=== PATIENT | female | born 1970 | race Caucasian/White ===

== ENCOUNTER 2020-01-05 17:07 | Inpatient (IN) ==
--- NOTE | 2020-01-05 17:21 | Emergency Department Note ---
Impression & Plan Intra-abdominal haematoma, Thrombocytopenia, Anemia ED Provider Note NAME: PIEDAD COX AGE: 49 SEX: F : 1970 ARRIVES VIA: Walk-In INFORMANT: Patient, ED PROVIDER(S): Prashanth Blanchard MD Chief Complaint: Abdominal pressure, bruising HPI: Patient does present with the above complaints. The patient states that she has had some associated abdominal pressure over the last 3 to 4 days. It is been somewhat intermittent. The patient was concerned that she noticed some bruising over the lower abdomen today. Patient states she denies any trauma. The patient does not use any blood thinning medications. The patient does not think that she has had anything weighted either pressing against her sitting on the lower abdomen. Patient denies any nausea vomiting. The patient denies any sick contacts. The patient is primarily from [place] but has been within the [facility] for the last month. The patient denies any sick contacts, fevers, chills, shortness of breath, cough and no other travel within the last month and has not had any coronavirus testing or associated symptoms. Patient does not take anything for symptoms at home. Patient does have a prior history of breast cancer status post mastectomy and reconstruction. The patient's serum section was 13 years ago. Patient denies any gingival bleeding but did have a nosebleed earlier today which stopped on its own. ROS: See HPI for pertinent positives and negatives. A total of 10 systems were reviewed and otherwise negative. Past medical history: See below Surgical history: See below Social history: See below Physical Exam: GENERAL: Well appearing, well nourished, NAD, non-toxic. Wearing a mask. EYE EXAM: Normal conjunctiva. PERRL, no anisocoria and EOM's grossly intact w/o pain. NECK: Supple, no nuchal rigidity, no adenopathy, non-tender. No signs of meningismus. LUNGS: Clear to auscultation. Normal chest wall mechanics. HEART: NSR, no MRG. ABDOMEN: Abdomen soft, non-tender, normo-active bowel sounds, no masses, no rebound or guarding. BACK: No CVA TTP. Well-healed surgical scars over the bilateral lateral thoracic back. SKIN: No rashes. Ecchymosis located over the lower abdomen. Small area of ec chymosis around the lower portion of the umbilicus. UPPER EXTREMITIES: Upper extremities are grossly normal. LOWER EXTREMITIES: Grossly normal, no edema. NEURO EXAM: A&O x3, cranial nerves II-XII grossly intact, normal speech, moves all 4 extremities on command w/o issue. Differential diagnoses: Coagulopathy, thrombocytopenia, platelet dysfunction, mass, malignancy, among others were entertained. Course: Patient was seen and evaluated at the bedside. The patient had a full history and physical exam completed. I did update the patient on the findings. I did speak with Dr. Martinez [facility] hematology/oncology. He recommended platelet function assay as well as fibrinogen testing. I placed these orders in addition to a type and screen. I did speak with the on-call hospitalist [facility] Dr. Perez. He will further evaluate treat the patient. EKG: None Imaging Studies: Radiology results as stated below per my review in the radiologist's interpretation: CT abd pelvis IV con only CT DOSE: 348.79 mGy.cm HISTORY: Pain spontaneous ecchymosis lower abdomen TECHNIQUE: Multiaxial CT images of the abdomen and pelvis were performed following the use of intravenous contrast. A dose lowering technique was utilized adhering to the principles of ALARA. COMPARISON STUDY: None. FINDINGS: Lung bases are clear. There has been bilateral augmentation mammoplasty. Liver spleen and pancreas enhance uniformly. Kidneys are negative for hydronephrosis. Nonobstructive bowel pattern. Mild infiltrative change within the right lower quadrant adjacent to cecum and appendix. The appendix itself appears to be unremarkable. There is inflammatory changes immediately adjacent to a soft tissue density within the low right soft tissue pelvic region. This measures 9 x 6 x 5 cm. It is suggestive given history of a potential hematoma. No well-defined evidence for an active focus of bleeding at this time. The rectus musculature appears unremarkable. IMPRESSION: 1. Hematoma of the lower right pelvic region immediately lateral to the lower aspect of the bladder on the right. 2. Dimensions are 9 x 6 x 5 cm. 3. Mild reactive infiltrative change of the fat adjacent to the cecum and appendix. No evidence for acute appendicitis. 4. Remainder the study is unremarkable. ACT 112: Negative or not required by law. The above report was generated using voice recognition software. It may contain grammatical, syntax or spelling errors. Electronically signed by: Michel Sparrow M.D. 01/05/2020 6:54 PM Dictated: 01/05/201848 Transcribed: 01/05/201848 Cardiac monitoring: An order was placed for continuous cardiac monitoring. The monitor shows a rate of 97 with sinus rhythm. MDM: Patient was seen and evaluated the bedside. The patient was presenting with concern for lower abdominal bruising and associated pressure. The patient denies any trauma. Patient does not use any blood thinning medications. Patient did have blood work completed along with a CT of the abdomen pelvis. Coagulation studies were obtained. Patient does have mild anemia with a hemoglobin of 10. Mild thrombocytopenia greater than 100,000. Patient CT of the abdomen pelvis does show a 9 x 6 x 5 cm hematoma. I did ask the patient to see if she had some sort of patient portal. She was able to locate a CBC from 2016. This did show that the patient had normal platelet count at greater than 260. Patient also had a hemoglobin of 13 at that time. I did speak with the on-call weapons officer Dr. Chinchilla who recommended fibrinogen as well as a platelet function test. I did speak the on- call hospitalist agreed to further evaluate treat the patient. Patient was admitted to the medicine service. After further discussion with the patient stating that the only thing that was present was this bruising she did relate that she has had a lot of sexual intercourse. It is possible that this may be a precipitating cause. I did convey this to the hospitalist. Past Med/Surg History Medical History Breast cancer Surgical History H/O breast reconstruction H/O section H/O mastectomy Social History Feels Safe at Home: Yes Smoking Status: Never smoker Allergies Allergies Allergy/AdvReac Type Severity Reaction Status Date / Time Sulfa (Sulfonamide Allergy Severe HIVES Unverified 01/05/20 18:10 Antibiotics) Home Meds Home Medications Medication Instructions Recorded Confirmed Dearbrightly//Regular 1 applic TOPICAL HS 01/05/20 01/05/20 albuterol sulfate 1 puff INHALATION UD PRN 01/05/20 01/05/20 anastrozole 1 mg PO DAILY 01/05/20 01/05/20 citalopram 20 mg PO DAILY 01/05/20 01/05/20 estradiol [Estring] 1 vag ring VAGINAL UD 01/05/20 01/05/20 fexofenadine 30 mg PO DAILY 01/05/20 01/05/20 fluticasone propionate [Flovent 1 puff INHALATION DAILY 01/05/20 01/05/20 HFA] nitrofurantoin monohyd/m-cryst 100 mg PO DAILY 01/05/20 01/05/20 Results & Data (ED) Vital Signs Vital Signs - 24 hr 01/05/20 17:11 01/05/20 19:02 Temperature 36.8 C Temperature Source Oral Pulse Rate 102 H Pulse Rate [Right Finger] 68 Pulse Rhythm Regular Pulse Rhythm [Right Finger] Regular Pulse Strength Normal Pulse Strength [Right Finger] Normal Respiratory Rate 20 16 Respiratory Effort / Characteristics Non-Labored Spontaneous Non-Labored Respiratory Depth Normal Normal Respiratory Pattern Regular Regular Blood Pressure 188/114 H Blood Pressure [Right Arm] 144/95 H Blood Pressure Mean 138 Blood Pressure Mean [Right Arm] 111 Blood Pressure Position Sitting Blood Pressure Position [Right Arm] Lying Pulse Oximetry 99 100 Oxygen Delivery Method Room Air Room Air Sepsis Recent Fever Within 48 Hours No Sepsis Action Taken by Nursing No Action Required Home Medications Current Medication List: was personally reviewed by me Laboratory Data Attestation: I reviewed the patient's lab results. Result diagrams: 01/05/20 17:37 01/05/20 18:00 Lab Results 01/05/20 01/05/20 01/05/20 Range/Units 17:37 17:37 17:37 WBC 6.06 (4.8-10.8) K/uL RBC 3.49 L (4.2-5.4) M/uL Hgb 10.9 L (12.0-16.0) g/dL Hct 32.5 L (37-47) % MCV 93.1 (80-100) fL MCH 31.2 (25-34) pg MCHC 33.5 (32-36) g/dL RDW Std Deviation 42.3 (36.4-46.3) fL RDW Coeff of John 12.5 (11.5-14.5) % Plt Count 106 L (130-400) K/uL MPV 10.8 H (7.4-10.4) fL Immature Gran % (Auto) 0.3 % Neut % (Auto) 56.1 % Lymph % (Auto) 31.8 % Chambers % (Auto) 7.9 % Eos % (Auto) 3.6 % Baso % (Auto) 0.3 % Immature Gran # (Auto) 0.02 (0.00-0.02) K/uL Neut # (Auto) 3.39 (1.4-6.5) K/uL Lymph # (Auto) 1.93 (1.2-3.4) K/uL Chambers # (Auto) 0.48 (0.11-0.59) K/uL Eos # (Auto) 0.22 (0-0.5) K/uL Baso # (Auto) 0.02 (0-0.2) K/uL PT Cancelled INR Cancelled APTT Cancelled PTT Ratio Cancelled Sodium Cancelled Potassium Cancelled Chloride Cancelled Carbon Dioxide Cancelled Anion Gap Cancelled BUN Cancelled Creatinine Cancelled Est Cr Clr Drug Dosing Cancelled Est GFR ( Amer) Cancelled Est GFR (Non-Af Amer) Cancelled BUN/Creatinine Ratio Cancelled Glucose Cancelled Calcium Cancelled Total Bilirubin Cancelled AST Cancelled ALT Cancelled Alkaline Phosphatase Cancelled Total Protein Cancelled Albumin Cancelled Globulin Cancelled Albumin/Globulin Ratio Cancelled Lipase Cancelled 01/05/20 01/05/20 Range/Units 18:00 18:00 WBC (4.8-10.8) K/uL RBC (4.2-5.4) M/uL Hgb (12.0-16.0) g/dL Hct (37-47) % MCV (80-100) fL MCH (25-34) pg MCHC (32-36) g/dL RDW Std Deviation (36.4-46.3) fL RDW Coeff of John (11.5-14.5) % Plt Count (130-400) K/uL MPV (7.4-10.4) fL Immature Gran % (Auto) % Neut % (Auto) % Lymph % (Auto) % Chambers % (Auto) % Eos % (Auto) % Baso % (Auto) % Immature Gran # (Auto) (0.00-0.02) K/uL Neut # (Auto) (1.4-6.5) K/uL Lymph # (Auto) (1.2-3.4) K/uL Chambers # (Auto) (0.11-0.59) K/uL Eos # (Auto) (0-0.5) K/uL Baso # (Auto) (0-0.2) K/uL PT 9.6 INR 0.9 APTT 25.2 PTT Ratio 0.9 Sodium 135 L Potassium 3.5 Chloride 108 H Carbon Dioxide 28 Anion Gap -2.0 L BUN 22 H Creatinine 0.65 Est Cr Clr Drug Dosing 99.2 Est GFR ( Amer) 120.8 Est GFR (Non-Af Amer) 104.3 BUN/Creatinine Ratio 33.1 H Glucose 105 H Calcium 9.0 Total Bilirubin 0.6 AST 22 ALT 26 Alkaline Phosphatase 111 Total Protein 7.0 Albumin 3.4 Globulin 3.6 Albumin/Globulin Ratio 0.9 Lipase 244 Administered Medications Ioversol (Optiray 320 100ml) 94 ml IV ONCE PRN PRN Reason: Interaction Checking Stop: 01/09/20 18:40 Last Admin: 01/05/20 18:42 Dose: 94 ml Documented by: [id number] Discontinued Medications Sodium Chloride (Nss 1000ml) 1,000 mls @ 999 mls/hr IV .Q1H1M ONE Stop: 01/05/20 18:28 Last Infusion: 01/05/20 18:57 Dose: 0 mls/hr Documented by: [id number] Admin: 01/05/20 17:52 Dose: 999 mls/hr Documented by: [id number] Blood Pressure Blood Pressure Disposition: elevated BP felt to be situational Discharge Plan Visit Data Chief Complaint: Abdominal Pain Stated Complaint: ABD PAIN ED Provider: Prashanth Blanchard Discharge Problem: Intra-abdominal haematoma, Thrombocytopenia, Anemia Forms Stand Alone Forms: My [facility] ActualMeds Prescriptions Prescriptions: No Action anastrozole 1 mg tablet 1 mg PO DAILY RF: 0 citalopram 20 mg tablet 20 mg PO DAILY RF: 0 albuterol sulfate 90 mcg/actuation HFA aerosol inhaler 1 puff INHALATION UD PRN (Reason: Exercise Induced Bronchospasm) RF: 0 Estring 2 mg (7.5 mcg /24 hour) ring 1 vag ring VAGINAL UD RF: 0 Flovent HFA 110 mcg/actuation HFA aerosol inhaler 1 puff INHALATION DAILY RF: 0 nitrofurantoin monohyd/m-cryst 100 mg capsule 100 mg PO DAILY RF: 0 fexofenadine 30 mg Tablet,Disintegrating 30 mg PO DAILY RF: 0 Dearbrightly//Regular 1 applic topical HS RF: 0 Discharge Problem: Anemia Qualifiers: Anemia type: unspecified type Qualified Code(s): D64.9 - Anemia, unspecified
[2020-01-05] MEDS ORDERED: SODIUM CHLORIDE 0.9% 1000ML 1,000 ML IV ONE (17:28)
[2020-01-05 17:45] LABS: Basophils # (auto) 0.02 K/uL (0-0.2); Basophils % (auto) 0.3 %; Eosinophils # (auto) 0.22 K/uL (0-0.5); Eosinophils % (auto) 3.6 %; Hematocrit (blood only) 32.5 % (37-47); Hemoglobin 10.9 g/dL (12.0-16.0); Immature Granulocytes # (auto) 0.02 K/uL (0.00-0.02); Immature Granulocytes % (auto) 0.3 %; Lymphocytes # (auto) 1.93 K/uL (1.2-3.4); Lymphocytes % (auto) 31.8 %; Mean Corpuscular Hemoglobin 31.2 pg (25-34); Mean Corpuscular Hgb Conc 33.5 g/dL (32-36); Mean Corpuscular Volume 93.1 fL (80-100); Mean Platelet Volume 10.8 fL (7.4-10.4); Monocytes # (auto) 0.48 K/uL (0.11-0.59); Monocytes % (auto) 7.9 %; Neutrophils # (auto) 3.39 K/uL (1.4-6.5); Neutrophils % (auto) 56.1 %; Platelet Count 106 K/uL (130-400); RDW Coefficient of Variation 12.5 % (11.5-14.5); RDW Standard Deviation 42.3 fL (36.4-46.3); Red Blood Count 3.49 M/uL (4.2-5.4); White Blood Count 6.06 K/uL (4.8-10.8)
[2020-01-05 18:30] LABS: INR 0.9 (0.9-1.1); Partial Thromboplastin Ratio 0.9; Partial Thromboplastin Time 25.2 Seconds (21.0-31.0); Prothrombin Time 9.6 Seconds (9.0-12.0)
[2020-01-05 18:32] LABS: Albumin Level 3.4 gm/dl (3.4-5.0); BUN Creatinine Ratio 33.1 (10-20); Creatinine Clr Calc Pharmacy 99.2 ml/min; Est GFR (African American) 120.8; Est GFR (Non-African American) 104.3; Potassium 3.5 mmol/L (3.5-5.1)
[2020-01-05 18:35] LABS: Albumin Globulin Ratio 0.9 (0.9-2); Bilirubin,Total 0.6 mg/dl (0.2-1); Globulin 3.6 gm/dl (2.5-4.0)
[2020-01-05] MEDS ORDERED: IOVERSOL 100ml IV PRN (18:41)
--- NOTE | 2020-01-05 18:55 | CT Scan Report ---
CT abd pelvis IV con only CT DOSE: 348.79 mGy.cm HISTORY: Pain spontaneous ecchymosis lower abdomen TECHNIQUE: Multiaxial CT images of the abdomen and pelvis were performed following the use of intrave nous contrast. A dose lowering technique was utilized adhering to the principles of ALARA. COMPARISON STUDY: None. FINDINGS: Lung bases are clear. There has been bilateral augmentation mammoplasty. Liver spleen and pancreas enhance uniformly. Kidneys are negative for hydronephrosis. Nonobstructive bowel pattern. Mild infiltrative change within the right lower quadrant adjacent to cecum and appendix. The appendix itself appears to be unremarkable. There is inflammatory changes immediately adjacent to a soft tissue density within the low right soft tissue pelvic region. This measures 9 x 6 x 5 cm. It is suggestive given history of a potential negar she. No well-defined evidence for an active focus of bleeding at this time. The rectus musculature appears unremarkable. IMPRESSION: 1. Hematoma of the lower right pelvic region immediately lateral to the lower aspect of the bladder o n the right. 2. Dimensions are 9 x 6 x 5 cm. 3. Mild reactive infiltrative change of the fat adjacent to the cecum and appendix. No evidence for a cute appendicitis. 4. Remainder the study is unremarkable. ACT 112: Negative or not required by law. The above report was generated using voice recognition software. It may contain grammatical, syntax or spelling errors. Electronically signed by: Michel Sparrow M.D. 01/05/2020 6:54 PM
[2020-01-05 21:01] LABS: Fibrinogen 389 mg/dl (184-400)
[2020-01-05] MEDS ORDERED: ALBUTEROL HFA 8 GM INHALER INH PRN (21:12)
[2020-01-05] MEDS ORDERED: ONDANSETRON INJ 2 MG/ML 2 ML VIAL IV PRN (21:12)
[2020-01-05] MEDS ORDERED: [UNRECOGNIZED DRUG - OTHER] TOP SCH (21:12)
[2020-01-05] MEDS ORDERED: NITROGLYCERIN SL 0.4 MG/TAB TAB SL PRN (21:12)
[2020-01-05] MEDS: SODIUM CHLORIDE 0.9% 1000ML 1,000 ML IV SCH (21:57)
[2020-01-05] MEDS: ZOLPIDEM TARTRATE 5 MG TAB PO PRN (22:42)
--- NOTE | 2020-01-05 22:52 | History and Physical Report ---
DATE OF ADMISSION: 01/05/2020 CHIEF COMPLAINT: Abdominal pain and bruises. HISTORY OF PRESENT ILLNESS: This is a 49-year-old female with past medical history significant for breast cancer diagnosed in 2012, status post bilateral breast mastectomy and chemo, currently on anastrozole. No other significant past medical history. Presents with lower abdominal pain since Wednesday morning. The patient is from [facility], but she came to [place] about a month ago. Lives currently with her parents. Abdominal pain about 3/10 to 4/10 in severity, not associated with any nausea or vomiting. No diarrhea. Somewhat constipated, but denies any blood in the stools or black stools. Normal bladder movements, no hematuria. Appetite is okay. Ambulating fine. Denies any chest pain, no shortness of breath, no cough, no fever, no chills, no headache, no dizziness, no blurred visions, no earache, no runny nose, no sore throat, no dysphagia, no sick contacts. The patient denies any risk for COVID infections.She noticed bruises in her lower abdomen today. She states she is taking ibuprofen 2 times a day for last 2 weeks because she jogs and she is having aches and pains in lower extremity. Currently resting comfortable and hemodynamically stable. ALLERGIES: SULFA ANTIBIOTICS. PAST MEDICAL HISTORY: As mentioned above. PAST SURGICAL HISTORY: Bilateral mastectomy, , tonsillectomy. MEDICATIONS: The patient is on albuterol 1 puff inhalation p.r.n., anastrozole 1 mg p.o. daily, citalopram 20 mg p.o. daily, estradiol vaginal ring as directed, fexofenadine 30 mg p.o. daily, Flonase 1 puff inhalation daily, nitrofurantoin 100 mg p.o. daily last dose today. FAMILY HISTORY: Mother had breast cancer. SOCIAL HISTORY: Remote history of smoking. Alcohol, generally does not drink regularly, but last 2 weeks she has been drinking daily. She is from [place], currently since 1 month she is living with her parents. REVIEW OF SYSTEMS: As per HPI. Rest of the review of systems negative. PHYSICAL EXAMINATION: GENERAL: The patient is of moderate build, not in acute distress. VITAL SIGNS: Temperature 36.8, pulse 68, respiratory rate 16, blood pressure 144/95, oxygen 99% on room air. HEENT: Pupils equal, round, reactive to light. Extraocular muscles intact. NECK: No neck masses. Supple. CARDIOVASCULAR: S1, S2 heard, regular rate and rhythm, no murmur, no gallop. RESPIRATORY SYSTEM: Normal AP diameter. No accessory muscle use. No wheezing, no crackles. ABDOMEN: Soft, bowel sounds present, nontender. No distention. Bruises seen in the lower abdomen. CENTRAL NERVOUS SYSTEM: Cranial nerves II-XII grossly intact. Nonfocal. EXTREMITIES: No edema, no erythema. LABORATORY DATA: WBC 6, hemoglobin 10.9, hematocrit 32.5, platelets 106. PT 9.6, INR 0.9, APTT 25.2. Sodium 135, potassium 3.5, chloride 108, bicarbonate 28, BUN 22, creatinine 0.6, serum glucose 105, calcium 9, total bilirubin 0.6, AST 22, ALT 26, alkaline phosphatase 111, lipase 244. IMAGING DATA: CT of the abdomen and pelvis, hematoma of the lower right pelvic region immediately lateral to the lower aspect of the bladder on the right, dimensions are 9 x 6 x 5 cm, mildly reactive infiltrative change in the fat distant to cecum and appendix. No evidence of acute appendicitis. ASSESSMENT AND PLAN: This 49-year-old female presents with abdominal pain and found to have large abdominal hematoma. 1. Abdominal pain and bruises in lower abdomen since last Wednesday. CAT scan is showing 9 x 6 x 5 cm right lower pelvic region hematoma. No trauma. Taking ibuprofen twice daily for last 2 weeks. Denies taking any blood thinners. We will observe the patient in the hospital. Consult surgery in the a.m. for further recommendations. The ER physician talked to oncologist driver lifter of sanitation truck and recommended to do platelet function test and fibrinogen test which are pending. 2. History of breast cancer diagnosed in 2012, status post bilateral mastectomy, currently on anastrozole. States she is doing fine regarding it. 3. Anemia, hemoglobin 10.9, we do not have a baseline hemoglobin. We will check the stool for Hemoccult, iron studies, vitamin B12, and folate levels. Follow the labs. Stool for Hemoccult. 4. Thrombocytopenia, mild, platelets of 106. We will follow the fibrinogen and platelet function test. We will also do a Lyme screen and also peripheral smear to look for any anaplasmosis in the patient. 5 Deep venous thrombosis prophylaxis, sequential compression devices. DISPOSITION: Closely observe in the med/surg tele. Level 1 full code. MTDD
[2020-01-06 05:44] LABS: Hematocrit (blood only) 30.4 % (37-47); Hemoglobin 10.3 g/dL (12.0-16.0); Mean Corpuscular Hemoglobin 31.3 pg (25-34); Mean Corpuscular Hgb Conc 33.9 g/dL (32-36); Mean Corpuscular Volume 92.4 fL (80-100); Mean Platelet Volume 8.9 fL (7.4-10.4); Platelet Count 240 K/uL (130-400); RDW Coefficient of Variation 12.4 % (11.5-14.5); RDW Standard Deviation 42.1 fL (36.4-46.3); Red Blood Count 3.29 M/uL (4.2-5.4); White Blood Count 6.65 K/uL (4.8-10.8)
[2020-01-06 05:58] LABS: Basophils # (auto) 0.02 K/uL (0-0.2); Basophils % (auto) 0.3 %; Eosinophils # (auto) 0.32 K/uL (0-0.5); Eosinophils % (auto) 4.8 %; Immature Granulocytes # (auto) 0.03 K/uL (0.00-0.02); Immature Granulocytes % (auto) 0.5 %; Lymphocytes # (auto) 1.55 K/uL (1.2-3.4); Lymphocytes % (auto) 23.3 %; Monocytes # (auto) 0.73 K/uL (0.11-0.59); Neutrophils % (auto) 60.1 %
[2020-01-06 06:48] LABS: Lyme Ab IgG w/WB Rflx Negative (Negative); Lyme Ab IgM w/WB Rflx Negative (Negative)
[2020-01-06 07:25] LABS: Creatinine Clr Calc Pharmacy 108.8 ml/min; Est GFR (African American) 124.7; Est GFR (Non-African American) 107.6; Potassium 3.3 mmol/L (3.5-5.1)
[2020-01-06 07:26] LABS: BUN Creatinine Ratio 18.3 (10-20); Calcium 8.4 mg/dl (8.5-10.1); Magnesium 1.9 mg/dl (1.8-2.4)
[2020-01-06 07:27] LABS: Ferritin 170.1 ng/ml (8-388)
--- NOTE | 2020-01-06 07:29 | Surgery Consultation ---
Date of Consultation January 06, 2020 Assessment & Plan (1) Pelvic hematoma: Patient admitted with what appears to be a right pelvic hematoma This could be related to her ovary, it appears there is no significant relationship to her bowel or appendix Could be related to a pelvic tumor, she will require repeat CAT scan but this would not have to be performed for weeks Unless we are concerned with ongoing bleeding I do feel it is most likely clot at this point and she probably bled 3 to 4 days ago It does not appear that she has having active bleeding, we are monitoring her hematocrit I do suspect a mild fall in the hematocrit with her rehydration No indication for surgical intervention at this point She should probably have a SECURITY ALARM TECHNICIAN evaluation and possibly hematology for some underlying bleeding disorder I will order clear liquids History of Present Illness Attending Physician: Veronica Wallace MD History of Present Illness Patient is a 49-year-old female, we are consulted for a which is in the right pelvis This could be intra-abdominal or retroperitoneal in that area. She came to the emergency room Because of 3 to 4 days of abdominal pressure and then noticed bruising in her abdominal wall Her CAT scan showed a right pelvic hematoma. There is some mild inflammatory changes in the area of cecum and appendix but no evidence of appendicitis. Her hematocrit is stable, platelet count is normal She has a history of bilateral mastectomy for history of breast cancer chemotherapy in the past -2012 She is on anastrozole She no longer experiences menses but does have her ovaries Allergies Allergy/AdvReac Type Severity Reaction Status Date / Time Sulfa (Sulfonamide Allergy Severe HIVES Unverified 01/05/20 18:10 Antibiotics) Home Medications Home Medications Medication Instructions Recorded Confirmed Type Dearbrightly//Regular 1 applic TOPICAL HS 01/05/20 01/05/20 History albuterol sulfate 1 puff INHALATION UD PRN 01/05/20 01/05/20 History anastrozole 1 mg PO DAILY 01/05/20 01/05/20 History citalopram 20 mg PO DAILY 01/05/20 01/05/20 History estradiol [Estring] 1 vag ring VAGINAL UD 01/05/20 01/05/20 History fexofenadine 30 mg PO DAILY 01/05/20 01/05/20 History fluticasone propionate [Flovent 1 puff INHALATION DAILY 01/05/20 01/05/20 History HFA] nitrofurantoin monohyd/m-cryst 100 mg PO DAILY 01/05/20 01/05/20 History Patient History Medical History Breast cancer Surgical History H/O breast reconstruction H/O section H/O mastectomy Social History Preferred Language: Frisian Communication Ability: Effective Braille Coder Required: No Beliefs That Will Affect Care: None Current Living Situation: Family Current Living Situation Comment: With son Other Information That Helps Us Care for You: No Feels Safe at Home: Yes Smoking Status: Former smoker Tobacco Type: cigarettes ; Do You Dip or Chew Tobacco: No ; Second Hand Exposure: No ; Tobacco Cessation Education Requested by Patient: No Hx Alcohol Use: Yes Alcohol type: beer, wine and hard liquor Hx Substance Use: No Review of Systems Review of Systems: All systems reviewed & are unremarkable except as noted in HPI & below Physical Exam Physical Exam: Patient's abdomen is flat and soft with some bruising in the lower abdomen He does have some mild tenderness to deep palpation Constitutional: well developed and well nourished; no acute distress Eyes: + anicteric sclerae Respiratory: normal respiratory effort; no respiratory distress Cardiovascular: Rate/Rhythm: regular rate Gastrointestinal (Abdomen): Inspection/Auscultation: abdomen not distended Skin: no rashes, warm and dry Neurologic: awake Psychiatric: Orientation: alert Results & Data Vital Signs (Past 12 Hours) Vital Signs Temp Pulse Pulse Resp BP Pulse Ox 01/06/20 07:28 36.7 C 88 16 130/83 97 01/06/20 07:26 83 01/06/20 04:56 36.9 C 78 16 144/83 H 97 01/05/20 23:47 36.7 C 82 20 151/88 H 96 01/05/20 22:20 79 01/05/20 21:33 36.9 C 81 77 16 163/101 H 100 I have reviewed her CAT scan PG Care Time/CCT Total # of Minutes Spent Total Time Spent with Patient: Total time spent is greater than 50% in coordination of care (as documented) at patient's floor/unit and/or counseling patient: Coding Level of Care Code 93701 Inpt Consult Level 4 Diagnoses Pelvic hematoma
[2020-01-06] MEDS: FEXOFENADINE 60 MG TAB PO SCH (08:11)
[2020-01-06] MEDS: ANASTROZOLE 1 MG TAB PO SCH (08:11)
[2020-01-06] MEDS: CITALOPRAM 20 MG TAB PO SCH (08:11)
[2020-01-06] MEDS: SODIUM CHLORIDE 0.9% 1000ML 1,000 ML IV SCH (08:11)
[2020-01-06] MEDS: FLUTICASONE FUROATE 100MCG 14 PUFFS/INHALER INH SCH (08:12)
[2020-01-06] MEDS: ACETAMINOPHEN 325 MG TAB PO PRN (08:16)
[2020-01-06 08:57] LABS: Folate (Folic Acid) > 24.00 ng/ml (>5.38); Vitamin B12 1237 pg/ml (211-911)
[2020-01-06] MEDS: MoRPHine SULFATE 2 MG/ML CARP IV PRN ×2 (12:24→19:21)
--- NOTE | 2020-01-06 13:50 | Hospitalist Progress Note ---
Date of Service January 06, 2020 Assessment & Plan (1) Pelvic hematoma: admitted with sudden onset of rt sided pelvic /lower abdominal pain /bruise spontaneous hematoma no hx of trauma not on any anticoagulation CT abdomen /pelvis : large 9 x 6 x 5 cm.Hematoma of the lower right pelvic region immediately lateral to the lower aspect of the bladder on the right. coag panel stable no drop in H&H Pelvic USG : large complex collection seen in rt overy hx of breast CA , need to rule out ovarian malignancy ordered for CA 125/CEA -tumor markers ACID CHANGER consult requested pt denies of any recent wt loss , anorexia (2) Anemia: anemia of chronic disease hx of breast CA s/p chemo Hb remains at baseline 10 no acute drop noted pt denies of any symptom of SOB /CONTRERAS /dizzy spell or lightheadedness BREAST CA: dx in 2011 s/p bilateral mastectomy and chemo tx on Anaostrazole follows with Heme /Onc in [facility] dvt prophylaxis : scd and teds pt is encouraged to ambulate no anticoagulation given presence of pelvic hematoma DISPOSITION ; plan to dc home in next 24-48 hrs Admission and Anticipated Discharge Date Admission Date: January 05, 2020 Subjective complains of rt sided lower abdomen and flak pain no fever or chills no urinary symptoms no complain of nausea or vomiting appetite fair no report of recent wt loss no vaginal bleeding Review of Systems Review of Systems: All systems reviewed & are unremarkable except as noted in HPI & below Constitutional: no fever, no chills, no fatigue, no malaise, no anorexia and no weight loss Genitourinary: no dysuria, no urinary frequency and no hematuria Physical Exam Constitutional: WD/WN, vitals as above Eyes: PERRL, conjunctivae normal, anicteric sclerae ENMT: external ear and nose normal, oropharynx normal Neck: trachea midline, no thyromegaly Respiratory: normal respiratory effort, lungs clear to auscultation Cardiovascular: RRR, no murmur, no edema Gastrointestinal (Abdomen): normal bowel sounds, soft, nontender, no hepatosplenomegaly lower abdominal small eccymosis noted no swelling or surround ecchymosis Skin: eccymosis in lower pelvic area no redness or swelling Results & Data Results & Data ([facility]) Vital Signs (Past 12 Hours) Vital Signs Temp Pulse Pulse Resp BP Pulse Ox 01/06/20 07:28 36.7 C 88 16 130/83 97 01/06/20 07:26 83 01/06/20 04:56 36.9 C 78 16 144/[address] ABDOMEN/PELVIS : IMPRESSION: 1. Hematoma of the lower right pelvic region immediately lateral to the lower aspect of the bladder on the right. 2. Dimensions are 9 x 6 x 5 cm. 3. Mild reactive infiltrative change of the fat adjacent to the cecum and appendix. No evidence for acute appendicitis. 4. Remainder the study is unremarkable. PELVIC ULTRASOUND : IMPRESSION: 1. Unremarkable sonographic assessment of the uterus and left ovary. 2. Nonvisualization of the right ovary. 3. A large complex collection is again seen in the right adnexa. This likely represents a hematoma when correlated with yesterday's pelvic CT scan. (1) Anemia Anemia type: unspecified type Qualified Code(s): D64.9 - Anemia, unspecified
[2020-01-06] MEDS ORDERED: POTASSIUM CHLORIDE 20 MEQ TABCR PO STA (14:05)
--- NOTE | 2020-01-06 15:35 | Ultrasound Report ---
ULTRASOUND OF THE PELVIS CLINICAL HISTORY: Pelvic hematoma. COMPARISON STUDY: Pelvic CT dated 01/05/2020. TECHNIQUE: Real-time, grayscale, and color flow sonography of the pelvis is performed both transabdom inally and endovaginally. Images are reviewed in the transverse and longitudinal planes. The endovagi nal examination was performed for better assessment of the adnexa. FINDINGS: Uterus: The uterus is normal in size and echotexture, measuring 7.4 x 3.8 x 4.3 cm. Endometrium: The endometrium is normal in appearance, and the endometrial stripe is normal in thickne ss measuring up to 0.4 cm. Ovaries: The right ovary was not visualized. The left ovary measures 3.0 x 1.4 x 2.4 cm. Normal Doppl er waveforms are shown within both ovaries. Pelvis: A complex fluid collection is again seen in the right adnexa. This measures approximately 10 x 6 x 6.5 cm. No internal flow is shown on color imaging. There is a small volume of simple free flui d in the cul-de-sac. IMPRESSION: 1. Unremarkable sonographic assessment of the uterus and left ovary. 2. Nonvisualization of the right ovary. 3. A large complex collection is again seen in the right adnexa. This likely represents a hematoma wh en correlated with yesterday's pelvic CT scan. ACT 112: Negative or not required by law. Electronically signed by: Jcarlos Jimenez M.D. 01/06/2020 3:33 PM
--- NOTE | 2020-01-06 19:06 | Progress Note ---
Date of Service January 06, 2020 Assessment & Plan Admission and Anticipated Discharge Date Admission Date: January 06, 2020 Subjective EPIDEMIOLOGIST CONSILT Pt is seen and evaluated consult is dictated and plan discussed with Dr Torres Plan P is stable so we will do expectant management for now Repeat CT as out patient Results & Data ([facility]) Vital Signs (Past 12 Hours) Vital Signs Temp Pulse Pulse Resp BP Pulse Ox 01/06/20 15:42 36.9 C 78 18 145/89 H 100 01/06/20 07:28 36.7 C 88 16 130/83 97 01/06/20 07:26 83
[2020-01-06 19:09] LABS: Appearance Urine Clear (Clear); Bilirubin Urine Negative (Negative); Blood Urine Negative (Negative); Color Urine Yellow; Glucose Urine UA Negative (Negative); Ketones Urine Negative (Negative); Leukocyte Esterase Urine Negative (Negative); Nitrite Urine Negative (Negative); Protein Urine Negative (Negative); Specific Gravity Urine 1.014 (1.000-1.030); Urobilinogen Urine Negative (Negative)
--- NOTE | 2020-01-06 21:20 | Consultation Report ---
DATE OF CONSULTATION: 01/06/2020 CUT OFF SAW OPERATOR consult placed by Dr. Torres. HISTORY OF PRESENT ILLNESS: This is a 49-year-old G1, P1 status post breast cancer in 2012, patient underwent bilateral breast mastectomy and chemotherapy. She is presently on anastrozole. The patient lives in [place] and has been doing well since. She does not get any menses. She visited [place] and began to experience abdominal pain, ranked the pain 3-4. She is having the abdominal pain for the last 3-4 days. She presented to the Emergency Room last night. CT scan done in the Emergency Room showed a right pelvic adnexal mass. There was a 10 cm right lower pelvic mass, suspected to be a hematoma. The patient was therefore admitted. General surgery was consulted. General surgery saw the patient and ruled out any association of the hematoma with the bowel and therefore CUT OFF SAW OPERATOR was consulted. The patient had no shortness of breath, no chills, no fever. The patient is able to move her bowels. The patient denies history of any blood dyscrasias. She has no history of nosebleed or any bleeding from the gums or the ears. As stated above, she does not have any menses. She denies any bleeding anywhere on her body. She denies any trauma to the abdomen or abuse. She denies history of easy bruising. PAST MEDICAL HISTORY: History of breast cancer. PAST SURGICAL HISTORY: Bilateral mastectomy and sections. SOCIAL HISTORY: The patient denies smoking, drug or alcohol use. FAMILY HISTORY: Noncontributory. PHYSICAL EXAMINATION: GENERAL: Well-developed, well-nourished white female in no acute distress. HEART: S1, S2, regular rhythm and rate. LUNGS: Clear to auscultation bilaterally. ABDOMEN: The patient has ecchymoses on her right lower abdomen along her section scar. Nontender to touch. Positive bowel sounds. EXTREMITIES: No cyanosis, clubbing or edema. NEUROLOGIC: The patient is alert, awake and oriented x3. Labs are reviewed. Platelets unremarkable. PT/INR is ordered by the cash manager and all are normal. CT and ultrasound shows a 9 x 6 x 5 cm right adnexal mass, suspected to be a hematoma. The right ovary is not visible. ASSESSMENT AND PLAN: A 49-year-old with abdominal pain, found to have a large abdominal hematoma, the source of hematoma is unknown. The patient denies any trauma or abuse. The patient has history of breast cancer and is on anastrozole. She denies any hematuria or being on any medicines such as aspirin or any blood thinners. I have discussed the case with the hospitalist. At this point, hemoglobin, white count and platelets are all stable. We have had extensive discussion with the patient about management. The patient resides in [place]. She plans on being in [facility] for couple of months. Plan therefore is to monitor this adnexal mass since we now have a baseline size, if the hematoma continues to resolve on its own then there will be nothing to do obviously from this standpoint. If, however, there is a change in patient's condition including possible torsion, change in the size of the hematoma then we will consider surgery. The patient agrees with plan. I have had discussion with Dr. Torres about the patient's management as well.
[2020-01-06] MEDS: ZOLPIDEM TARTRATE 5 MG TAB PO PRN (22:09)
[2020-01-07] MEDS: ACETAMINOPHEN 325 MG TAB PO PRN (06:05)
[2020-01-07 06:33] LABS: Hematocrit (blood only) 32.9 % (37-47); Hemoglobin 10.9 g/dL (12.0-16.0)
[2020-01-07 07:13] LABS: BUN Creatinine Ratio 11.3 (10-20); Calcium 9.2 mg/dl (8.5-10.1)
--- NOTE | 2020-01-07 08:04 | Hospitalist Progress Note ---
Date of Service January 07, 2020 Assessment & Plan (1) Pelvic hematoma: admitted with sudden onset of rt sided pelvic /lower abdominal pain /bruise spontaneous hematoma CT abdomen /pelvis : large 9 x 6 x 5 cm.Hematoma of the lower right pelvic region immediately lateral to the lower aspect of the bladder on the right. no hx of trauma /fall or injury not on any anticoagulation coag panel normal , no prior hx of bleeding disorder -no nose bleed or hematur ia no other bruise or ecchymosis noted any other part of the body pt does not take low dose aspirin or any other blood thinners Hb stable at 10 ( pt has baseline anemia ) pt denies of any recent wt loss , anorexia Pelvic USG : large complex collection seen in rt ovary CA 125 Ag -result pending /CEA -tumor markers -Negative ACCOUNTING MACHINE OPERATOR consult requested appreciate input -no indication of emergent surgery or hematoma evacuation expected the hematoma will resolve spontaneously pt should return to ER with any event of fever ,increased pain on lower abdomen , feeling of dizzy spells or lightheadedness ( sign of blood loss anemia ) repeat LAB : complete blood count in 1 week to assess anemia repeat CT abdomen /pelvis is next 2 weeks to assess decrease in size of hematoma ACCOUNTING MACHINE OPERATOR follow up at [facility] clinic in 2-3 weeks to discuss about CT and lab finding and further treatment plan Pt is a visitor in [place] , lives in [facility] . her Health Care providers including Costumed Character Dr Roberto Carlos [facility] in [place] will Fax all the report and documents of patient current visit to Her [facility] for continued follow up and treatment pt will be given CD copy of CT scan /Ultrasound of pelvis . pt will be discharged home today (2) Anemia: possible anemia of chronic disease hx of breast CA s/p chemo Hb remains at baseline 10 no acute drop noted pt denies of any symptom of SOB /CONTRERAS /dizzy spell or lightheadedness ordered for iron study will add Folic acid /vitamin B 12 and iron supplements BREAST CA: dx in 2012 s/p bilateral mastectomy and chemo tx on Anaostrazole follows with Heme /Onc in [facility] dvt prophylaxis : scd and teds pt is encouraged to ambulate no anticoagulation given presence of pelvic hematoma DISPOSITION ; plan to dc home today Admission and Anticipated Discharge Date Admission Date: January 06, 2020 Anticipated date of discharge: 01/07/20 Subjective lower abdominal pain has improved no fever or chills no urinary symptoms Physical Exam Constitutional: WD/WN, vitals as above Eyes: PERRL, conjunctivae normal, anicteric sclerae ENMT: external ear and nose normal, oropharynx normal Neck: trachea midline, no thyromegaly Respiratory: normal respiratory effort, lungs clear to auscultation Cardiovascular: RRR, no murmur, no edema Gastrointestinal (Abdomen): normal bowel sounds, soft, nontender, no hepatosplenomegaly Musculoskeletal: no cyanosis or clubbing, extremities motor strength 5/5 Skin: small ecchymotic area on lower abdominal area , near to the her C section scar /no erythema , no swelling , area non tender , Neurologic: PERRL, EOMI, accommodation nl, no face palsy, no dysarthria Psychiatric: A+Ox3, euthymic affect Results & Data Results & Data ([facility]) Vital Signs (Past 12 Hours) Vital Signs Temp Pulse Resp BP Pulse Ox 01/07/20 07:36 36.6 C 69 16 133/87 99 01/07/20 04:38 36.3 C L 61 20 153/81 H 100 01/06/20 23:18 37.0 C 90 18 122/81 98 (1) Anemia Anemia type: unspecified type Qualified Code(s): D64.9 - Anemia, unspecified
[2020-01-07 08:50] LABS: Iron 41 mcg/dl (35-150); Total Iron Binding Capacity 353 mcg/dl (250-450)
--- NOTE | 2020-01-07 08:51 | Surgery Progress Note ---
Date of Service January 07, 2020 Assessment & Plan (1) Pelvic hematoma: H&H stable anticipate d/c today with outpatient Green Chain Puller f/u Subjective tolerating diet, feels some pressure, no pain Results & Data Vital Signs (Past 12 Hours) Vital Signs Temp Pulse Resp BP Pulse Ox 01/07/20 07:36 36.6 C 69 16 133/87 99 01/07/20 04:38 36.3 C L 61 20 153/81 H 100 01/06/20 23:18 37.0 C 90 18 122/81 98 PG Care Time/CCT Total # of Minutes Spent Total Time Spent with Patient: Total time spent is greater than 50% in coordination of care (as documented) at patient's floor/unit and/or counseling patient: Coding Level of Care Code None Diagnoses Pelvic hematoma
[2020-01-07] MEDS ORDERED: FOLIC ACID 1 MG TAB PO SCH (09:00)
[2020-01-07] MEDS ORDERED: FLINTSTONES COMPLETE CHEWABLE TAB PO SCH (09:00)
[2020-01-07] MEDS: CITALOPRAM 20 MG TAB PO SCH (09:12)
[2020-01-07] MEDS: FLUTICASONE FUROATE 100MCG 14 PUFFS/INHALER INH SCH (09:13)
[2020-01-07] MEDS: FEXOFENADINE 60 MG TAB PO SCH (09:13)
[2020-01-07] MEDS: ANASTROZOLE 1 MG TAB PO SCH (09:13)
--- NOTE | 2020-01-07 12:34 | Discharge Summary ---
Date of Service January 07, 2020 Admission HPI Per Admitting Provider DICTATED BY: Andrew Perez MD DATE OF ADMISSION: 01/05/2020 CHIEF COMPLAINT: Abdominal pain and bruises. HISTORY OF PRESENT ILLNESS: This is a 49-year-old female with past medical history significant for breast cancer diagnosed in 2012, status post bilateral breast mastectomy and chemo, currently on anastrozole. No other significant past medical history. Presents with lower abdominal pain since Wednesday morning. The patient is from [facility], but she came to [place] about a month ago. Lives currently with her parents. Abdominal pain about 3/10 to 4/10 in severity, not associated with any nausea or vomiting. No diarrhea. Somewhat constipated, but denies any blood in the stools or black stools. Normal bladder movements, no hematuria. Appetite is okay. Ambulating fine. Denies any chest pain, no shortness of breath, no cough, no fever, no chills, no headache, no dizziness, no blurred visions, no earache, no runny nose, no sore throat, no dysphagia, no sick contacts. The patient denies any risk for COVID infections.She noticed bruises in her lower abdomen today. She states she is taking ibuprofen 2 times a day for last 2 weeks because she jogs and she is having aches and pains in lower extremity. Currently resting comfortable and hemodynamically stable Principal Diagnosis PELVIC HEMATOMA Discharge Exam Constitutional WD/WN, vitals as above Eyes PERRL, conjunctivae normal, anicteric sclerae ENMT external ear and nose normal, oropharynx normal Neck trachea midline, no thyromegaly Respiratory normal respiratory effort, lungs clear to auscultation Cardiovascular RRR, no murmur, no edema Gastrointestinal (Abdomen) normal bowel sounds, soft, nontender, no hepatosplenomegaly Musculoskeletal no cyanosis or clubbing, extremities motor strength 5/5 Neurologic PERRL, EOMI, accommodation nl, no face palsy, no dysarthria Psychiatric A+Ox3, euthymic affect Discharge Data Allergies Allergy/AdvReac Type Severity Reaction Status Date / Time Sulfa (Sulfonamide Allergy Severe HIVES Unverified 01/05/20 18:10 Antibiotics) Consultations 01/05/20 19:25 ED Decision to Admit Stat 01/05/20 21:12 Consult Case Management - Discharge Planning Routine 01/06/20 08:00 Consult General Surgery Routine 01/06/20 17:15 Consult Gynecology Routine 01/07/20 08:01 Burn CD for patient Routine Ordered Studies 01/05/20 17:28 CT abd pelvis IV con only Stat 01/06/20 14:06 US pelvic complete Routine US transvaginal Routine Hospital Course (1) Pelvic hematoma: admitted with sudden onset of rt sided pelvic /lower abdominal pain /bruise spontaneous hematoma CT abdomen /pelvis : large 9 x 6 x 5 cm.Hematoma of the lower right pelvic region immediately lateral to the lower aspect of the bladder on the right. no hx of trauma /fall or injury not on any anticoagulation coag panel normal , no prior hx of bleeding disorder -no nose bleed or hematuria no other bruise or ecchymosis noted any other part of the body pt does not take low dose aspirin or any other blood thinners Hb stable at 10 ( pt has baseline anemia ) pt denies of any recent wt loss , anorexia Pelvic USG : large complex collection seen in rt ovary CA 125 Ag -result pending /CEA -tumor markers -Negative IRRIGATING PUMP OPERATOR consult requested appreciate input -no indication of emergent surgery or hematoma evacuation expected the hematoma will resolve spontaneously pt should return to ER with any event of fever ,increased pain on lower abdomen , feeling of dizzy spells or lightheadedness ( sign of blood loss anemia ) repeat LAB : complete blood count in 1 week to assess anemia repeat CT abdomen /pelvis is next 2 weeks to assess decrease in size of hematoma IRRIGATING PUMP OPERATOR follow up at [facility] clinic in 2-3 weeks to discuss about CT and lab finding and further treatment plan Pt is a visitor in [place] , lives in [facility] . her Health Care providers including Elastic Assembler Dr Roberto Carlos Ash [facility] in [place] will Fax all the report and documents of patient current visit to Her Elastic Assembler for continued follow up and treatment pt will be given CD copy of CT scan /Ultrasound of pelvis . pt will be discharged home today (2) Anemia: possible anemia of chronic disease hx of breast CA s/p chemo Hb remains at baseline 10 no acute drop noted pt denies of any symptom of SOB /CONTRERAS /dizzy spell or lightheadedness ordered for iron study will add Folic acid /vitamin B 12 and iron supplements BREAST CA: dx in 2012 s/p bilateral mastectomy and chemo tx on Anaostrazole follows with Heme /Onc in [facility] dvt prophylaxis : scd and teds pt is encouraged to ambulate no anticoagulation given presence of pelvic hematoma DISPOSITION ; plan to dc home today Total Time Total Time Spent Total Time Spent (In Minutes): approx 30 mins Total Time Includes: Discharge Planning and Medication Reconciliation Discharge Plan Discharge Items Patient Disposition: Home - Self-Care Reason For Visit: ABDOMINAL PAIN Discharge Diagnosis: PELVIC HEMATOMA Activity: Resume your previous activity Non-emergency contact: Primary Care Provider Call non-emergency contact if: you have any medication questions Follow-up/Referrals: Hans Sutton MD [Physician] - (IN 2-3 WEEKS ) PCPLANG [Primary Care Provider] - Diet: Regular Ambulatory Orders: Complete Blood Count no Diff (Routine) Timeframe: 1 Week Location: Determined by Patient Ordered By: Veronica Spencer Attending Provider Instructions: REPEAT CT ABDOMEN /PELVIS IN 3 WEEKS FOLLOW UP WITH IRRIGATING PUMP OPERATOR AT [facility] DO NOT TAKE ASPIRIN AVOID ANY MEDICATIONS WITH COMPONENT OF ASPIRIN -CAN CAUSE MORE BLEEDING PLEASE COME TO FEVER WITH ANY FEVER , WORSENING OF PAIN , BLEEDING PER VAGINA REPEAT LAB : CBC IN 1 WEEK PLEASE TAKE OVER THE COUNTER VITAMIN B 12 FOR SUPPLEMENT TAKE IRON AND FOLIC ACID SUPPLEMENTS Pending Studies at Discharge: Yes Studies:: CT ABDOMEN/PELVIS WITH CONTRAST IN 1 WEEK TO ASSESS PELVIC HEMATOMA LAB : COMPLETE BLOOD COUNT IN 1 WEEK Stand-Alone Forms: My [facility] [place] [employer], Smoking Cessation Medications and DC Order Prescriptions: New folic acid 1 mg tablet 1 mg PO DAILY Qty: 30 RF: 3 ferrous sulfate [iron] 325 mg (65 mg iron) tablet 325 mg PO DAILY Qty: 30 RF: 0 Continued anastrozole 1 mg tablet 1 mg PO DAILY RF: 0 citalopram 20 mg tablet 20 mg PO DAILY RF: 0 albuterol sulfate 90 mcg/actuation HFA aerosol inhaler 1 puff INHALATION UD PRN (Reason: Exercise Induced Bronchospasm) RF: 0 Estring 2 mg (7.5 mcg /24 hour) ring 1 vag ring VAGINAL UD RF: 0 Flovent HFA 110 mcg/actuation HFA aerosol inhaler 1 puff INHALATION DAILY RF: 0 fexofenadine 30 mg Tablet,Disintegrating 30 mg PO DAILY RF: 0 Dearbrightly//Regular 1 applic topical HS RF: 0 Discontinued nitrofurantoin monohyd/m-cryst 100 mg capsule 100 mg PO DAILY RF: 0 Discharge Orders: Discharge Order (Routine); Ordered 01/07/20 Ordered By: Veronica Cook/Other Patient Handouts: Anemia, Supplements Iron Admission Data Admit Date/Time: 01/06/20 14:10 Attending Provider: Veronica Wallace Admit Provider: Andrew Perez Primary Care Provider: PCP,NO Other Providers: Andrew Perez ; Michel Joe ; Tamiko Alejandre ; Clovis Marie ; Marija Reddy ; Jay Bullock ; Joon Alonzo ; Viri Graves ; Lorenzo Aguilar ; Marisela Drake ; Omar Devries Jr ; Ofe Paulino ; Sahra Hogue ; Louie Khan ; Stefany Del Rosario ; Beatriz Quesada ; Hans Sutton ; Aby Madrigal ; Maurilio Mir ; Ric Weiss ; Kacie Samuel ; Glory Dominguez V. ; Rosemarie De La Garza Other Interventions: Discharge Summary Assessment (RN) Last Done: 01/07/20 10:38
== END 2020-01-07 13:00 | disposition home or self-care (01) | DRG 605 ==
LOC: ED 17:07 → 2W 17:07

== ENCOUNTER 2022-08-16 10:22 | Observation (INO) ==
--- NOTE | 2022-08-16 11:52 | Emergency Department Note ---
Impression & Plan Surgical site infection, S/P abdominoplasty, History of breast cancer I DID NOT PARTICIPATE IN THIS NOTE BUT THE SYSTEM CANNOT REMOVE MY NAME UNLESS I SIGN AN ADDENDUM. PLEASE SEE ER PHYSICIAN NOTE/SIGNATURE BELOW. REMA LUND DO ED Provider Note NAME: PIEDAD COX AGE: 51 SEX: F : 1970 ARRIVES VIA: Walk-In INFORMANT: Patient, ED PROVIDER(S): Prashanth Blanchard MD Chief Complaint: Infection HPI: Patient presents due to concern for infection after recent abdominoplasty completed in [place]. Patient states she is here locally visiting family over the holiday. The patient did think that she had a fever on and called her primary surgeon who placed her on Keflex which she began taking Wednesday. Patient denies any fever since then. No chills. The patient states though that she feels as though the redness worsened and she noticed some mild drainage. Patient states that drinks alcohol no tobacco or drugs. The patient does have a prior history of breast cancer status post cancer treatment currently in remission. The patient also had bilateral mastectomies in the past. Patient is on anastrozole. ROS: See HPI for pertinent positives and negatives. A total of 10 systems were reviewed and otherwise negative. Past medical history: See below Surgical history: See below Social history: See below Physical Exam: GENERAL: NAD, wearing a mask, non-toxic. EYE EXAM: Normal conjunctiva. PERRL, no anisocoria and EOM's grossly intact w/o pain. NECK: Supple, no nuchal rigidity, no adenopathy, non-tender. No signs of meningismus. FROM of the neck with good chin to chest and neck extension. No stridor. LUNGS: Clear to auscultation. Normal chest wall mechanics. HEART: Tachycardic and regular, no MRG. ABDOMEN: Abdomen soft, redness superiorly and inferiorly 1 to 3 cm over the length of the left side of the abdominoplasty incision, induration noted, blan oc erythema with no crepitus, scant drainage coming from the midline of the incision, normo-active bowel sounds, no masses, no rebound or guarding. BACK: No CVA TTP. SKIN: No rashes and no bruising. UPPER EXTREMITIES: Upper extremities are grossly normal. LOWER EXTREMITIES: Grossly normal, no edema. NEURO EXAM: A&O x3, cranial nerves II-XII grossly intact, normal speech, moves all 4 extremities. Differential diagnoses: Cellulitis, abscess, MRSA infection, DVT, necrotizing fasciitis, dermatitis, drug eruption, allergic reaction, as well as other pathologies. Course: Patient was seen and evaluated the bedside. Full history physical exam was performed. EKG interpreted by me Imaging Studies: See Below Cardiac monitoring: An order was placed for continuous cardiac monitoring. The monitor shows a rate of with rhythm. MDM: Patient was seen due to concern for possible postoperative cellulitis versus abscess. The patient did have blood work completed and was ordered vancomycin and cefepime. Patient's blood work shows a white count 11.9 with a normal H&H and platelet count. Kidney function is unremarkable. Mild hypokalemia noted. The patient's LFTs are unremarkable. Urinalysis does not show obvious infection. COVID-negative. Patient CT abdomen pelvis shows postoperative changes with subcutaneous edema and ill-defined fluid collection up to 13 cm suggestive of a probable seroma or hematoma. Given the surrounding erythema I did speak with on-call general surgery Dr. Mcmillan who did evaluate the patient. He did recommend IV antibiotics and medical admission at the time. Surgery will follow in consultation. I did speak the on-call hospitalist Hanh Saxena PA-C and the patient was admitted to the medicine service by Dr. Lund. Past Med/Surg History Medical History History of breast cancer Surgical History H/O breast reconstruction H/O section H/O mastectomy Family History Other Breast cancer Social History Smoking Status: Former smoker Second Hand Exposure: No; Hx Alcohol Use: Yes Alcohol type: wine Alcohol Intake Frequency: 2-3 x/Week Hx Substance Use: No Preferred Language: Tanzanian Communication Ability: Effective Back Hoe Operator Required: No Beliefs That Will Affect Care: None marital status: Current Living Situation: Family Current Living Situation Comment: With son Feels Safe at Home: Yes Assistive Devices: None Allergies Allergies Allergy/AdvReac Type Severity Reaction Status Date / Time Sulfa (Sulfonamide Allergy Severe HIVES Unverified 01/05/20 18:10 Antibiotics) Home Meds Home Medications Medication Instructions Recorded Confirmed albuterol sulfate 90 mcg/actuation 2 puff inhalation Q6H PRN Exercise 01/05/20 08/16/22 aerosol inhaler Induced Bronchospasm anastrozole 1 mg tablet 1 mg PO DAILY 01/05/20 08/16/22 estradiol 2 mg (7.5 mcg/24 hour) 1 vag ring vaginal UD 08/16/22 08/16/22 vaginal ring (Estring) loratadine 10 mg tablet (Claritin) 10 mg PO DAILY 08/16/22 08/16/22 omega-3 fatty acids 1,000 mg PO DAILY 08/16/22 08/16/22 tretinoin 0.025 % topical cream 1 applic topical HS 08/16/22 08/16/22 Previous Rx's Medication Instructions Recorded doxycycline hyclate 100 mg capsule 100 mg PO BID 10 days #20 caps 08/17/22 Results & Data (ED) Vital Signs Vital Signs - 24 hr 08/16/22 11:08 08/16/22 12:34 08/16/22 13:04 Temperature 36.8 C Temperature Source Temporal Artery Scan Pulse Rate 107 H Pulse Rate [Apical] 81 Pulse Rhythm [Apical] Regular Pulse Strength [Apical] Normal Respiratory Rate 18 20 Respiratory Effort / Characteristics Non-Labored Spontaneous Respiratory Depth Normal Respiratory Pattern Regular Blood Pressure 126/87 Blood Pressure [Right Arm] 123/71 Blood Pressure Mean 100 Blood Pressure Mean [Right Arm] 88 Pulse Oximetry 99 97 Oxygen Delivery Method Room Air Room Air Room Air Sepsis Recent Fever Within 48 Hours No Sepsis New/Unexplained Change in Mental Status No Sepsis Action Taken by Nursing No Action Required Home Medications Current Medication List: was personally reviewed by me Laboratory Data Attestation: I reviewed the patient's lab results. Result diagrams: 08/17/22 09:49 08/17/22 09:49 Lab Results 08/16/22 08/16/22 08/16/22 Range/Units 12:23 12:23 12:23 WBC 11.97 H (4.8-10.8) K/ul RBC 4.17 (3.93-5.22) M/uL Hgb 12.7 (12.0-16.0) g/dl POC Hgb (12.0-16.0) g/dl Hct 37.4 (34.1-44.9) % POC Hct (37-47) % MCV 89.7 (80.0-100.0) fL MCH 30.5 (25.0-34.0) pg MCHC 34.0 (32.0-36.0) g/dL RDW Std Deviation 40.5 (36.4-46.3) fL RDW Coeff of John 12.3 (11.5-14.5) % Plt Count 318 (130-400) K/uL MPV 9.5 (9.4-12.3) fL Immature Gran % (Auto) 0.4 % Neut % (Auto) 67.3 % Lymph % (Auto) 18.5 % Anderson % (Auto) 10.1 % Eos % (Auto) 3.2 % Baso % (Auto) 0.5 % Neut # (Auto) 8.06 H (1.4-6.5) K/uL Lymph # (Auto) 2.21 (1.2-3.4) K/uL Anderson # (Auto) 1.21 H (0.24-0.82) K/uL Eos # (Auto) 0.38 (0-0.50) K/uL Baso # (Auto) 0.06 (0-0.2) K/uL Immature Gran # (Auto) 0.05 H (0.00-0.02) K/uL POC Sodium (135-144) mmol/L Sodium 137 (136-145) mmol/L POC Potassium (3.3-5.0) mmol/L Potassium 3.4 L (3.5-5.1) mmol/L POC Chloride (101-112) mmol/L Chloride 102 (98-107) mmol/L Carbon Dioxide 26 (21-32) mmol/L POC Total CO2 (24-31) mmol/L Anion Gap 9 (3-11) POC Anion Gap (16-25) mmol/L POC BUN (7-18) mg/dl BUN 13 (6-23) mg/dl Creatinine 0.65 (0.6-1.2) mg/dl POC Creatinine (0.6-1.3) mg/dl Est Cr Clr Drug Dosing 97.0 ml/min Est GFR ( Amer) 119.1 ml/min Est GFR (Non-Af Amer) 102.8 ml/min BUN/Creatinine Ratio 20.0 (10-20) Glucose 103 H (70-99(Fasting)) mg/dl POC Glucose (other) (70-99) mg/dl Lactate 0.7 (0.4-2.0) mmol/L Calcium 9.6 (8.5-10.1) mg/dl POC Ioniz Calcium Ricarda (1.12-1.32) mmol/l Magnesium 1.8 (1.7-2.4) mg/dl Total Bilirubin 0.6 (0.2-1.0) mg/dl Direct Bilirubin 0.1 (0-0.2) mg/dl AST 13 (13-39) U/L ALT 11 (7-52) U/L Alkaline Phosphatase 77 (34-104) U/L Troponin I High Sens 2.7 (0-14) pg/ml Total Protein 7.3 (6.0-8.3) gm/dl Albumin 4.1 (3.4-5.0) gm/dl Procalcitonin (0-0.5) ng/ml 08/16/22 08/16/22 Range/Units 12:23 12:29 WBC (4.8-10.8) K/ul RBC (3.93-5.22) M/uL Hgb (12.0-16.0) g/dl POC Hgb 13.3 (12.0-16.0) g/dl Hct (34.1-44.9) % POC Hct 39 (37-47) % MCV (80.0-100.0) fL MCH (25.0-34.0) pg MCHC (32.0-36.0) g/dL RDW Std Deviation (36.4-46.3) fL RDW Coeff of John (11.5-14.5) % Plt Count (130-400) K/uL MPV (9.4-12.3) fL Immature Gran % (Auto) % Neut % (Auto) % Lymph % (Auto) % Anderson % (Auto) % Eos % (Auto) % Baso % (Auto) % Neut # (Auto) (1.4-6.5) K/uL Lymph # (Auto) (1.2-3.4) K/uL Anderson # (Auto) (0.24-0.82) K/uL Eos # (Auto) (0-0.50) K/uL Baso # (Auto) (0-0.2) K/uL Immature Gran # (Auto) (0.00-0.02) K/uL POC Sodium 137 (135-144) mmol/L Sodium (136-145) mmol/L POC Potassium 3.2 L (3.3-5.0) mmol/L Potassium (3.5-5.1) mmol/L POC Chloride 99 L (101-112) mmol/L Chloride (98-107) mmol/L Carbon Dioxide (21-32) mmol/L POC Total CO2 24 (24-31) mmol/L Anion Gap (3-11) POC Anion Gap 18.0 (16-25) mmol/L POC BUN 14 (7-18) mg/dl BUN (6-23) mg/dl Creatinine (0.6-1.2) mg/dl POC Creatinine 0.6 (0.6-1.3) mg/dl Est Cr Clr Drug Dosing ml/min Est GFR ( Amer) ml/min Est GFR (Non-Af Amer) ml/min BUN/Creatinine Ratio (10-20) Glucose (70-99(Fasting)) mg/dl POC Glucose (other) 105 H (70-99) mg/dl Lactate (0.4-2.0) mmol/L Calcium (8.5-10.1) mg/dl POC Ioniz Calcium Ricarda 1.21 (1.12-1.32) mmol/l Magnesium (1.7-2.4) mg/dl Total Bilirubin (0.2-1.0) mg/dl Direct Bilirubin (0-0.2) mg/dl AST (13-39) U/L ALT (7-52) U/L Alkaline Phosphatase (34-104) U/L Troponin I High Sens (0-14) pg/ml Total Protein (6.0-8.3) gm/dl Albumin (3.4-5.0) gm/dl Procalcitonin 0.05 (0-0.5) ng/ml Administered Medications Discontinued Medications Acetaminophen (Acetaminophen 325 Mg Tab) 650 mg PO Q4H PRN PRN Reason: pain/fever Stop: 09/15/22 16:07 Last Admin: 08/17/22 15:56 Dose: 650 mg Documented By: Admin: 08/17/22 05:39 Dose: 650 mg Documented By: Admin: 08/16/22 22:11 Dose: 650 mg Documented By: KIM Anastrozole (Anastrozole 1 Mg Tab) 1 mg PO DAILY LILIAN Stop: 09/16/22 08:59 Last Admin: 08/17/22 08:04 Dose: 1 mg Documented By: SANDY Co-signed By: JC Diphenhydramine HCl (Diphenhydramine Capsule 25 Mg Cap) 25 mg PO NOW ONE Stop: 08/16/22 20:20 Last Admin: 08/16/22 21:29 Dose: 25 mg Documented By: Docusate Sodium (Docusate Sodium 100 Mg Cap) 100 mg PO BID LILIAN Stop: 09/15/22 20:59 Last Admin: 08/17/22 08:03 Dose: 100 mg Documented By: Admin: 08/16/22 21:30 Dose: Not Given Documented By: Enoxaparin Sodium (Enoxaparin Inj 40 Mg/0.4 Ml Syr) 40 mg SQ Q24H LILIAN Stop: 09/15/22 16:59 Last Admin: 08/16/22 16:50 Dose: 40 mg Documented By: KIM Sodium Chloride (Nss 1000ml) 1,000 mls @ 999 mls/hr IV .Q1H1M LILIAN Stop: 08/16/22 13:15 Last Infusion: 08/16/22 15:02 Dose: 0 mls/hr Documented By: Admin: 08/16/22 12:48 Dose: 999 mls/hr Documented By: NICOLE Cefepime HCl (Maxipime) 2,000 mg in 20 mls @ 5 mls/min IV NOW STA; Protocol Stop: 08/16/22 12:07 Last Admin: 08/16/22 12:48 Dose: 5 mls/min Documented By: NICOLE Vancomycin HCl 1,500 mg/ (Sodium Chloride) 530 mls @ 200 mls/hr IV NOW STA Stop: 08/16/22 14:42 Last Infusion: 08/16/22 16:33 Dose: 0 mls/hr Documented By: Admin: 08/16/22 13:23 Dose: 200 mls/hr Documented By: NICOLE Cefepime HCl 2,000 mg/ Syringe 20 mls @ 5 mls/min IV Q12 LILIAN; Protocol Stop: 08/23/22 20:59 Last Admin: 08/17/22 08:03 Dose: 5 mls/min Documented By: Admin: 08/16/22 21:31 Dose: 5 mls/min Documented By: Vancomycin HCl 1,000 mg/ (Sodium Chloride) 270 mls @ 200 mls/hr IV Q12H LILIAN; Protocol Stop: 08/23/22 16:59 Last Infusion: 08/17/22 17:32 Dose: 0 mls/hr Documented By: Admin: 08/17/22 15:52 Dose: 200 mls/hr Documented By: Infusion: 08/17/22 07:05 Dose: 0 mls/hr Documented By: Admin: 08/17/22 05:24 Dose: 200 mls/hr Documented By: Infusion: 08/16/22 19:24 Dose: 0 mls/hr Documented By: Admin: 08/16/22 17:43 Dose: 200 mls/hr Documented By: KIM Ioversol (Optiray 350 100ml) 88 ml IV ONCE ONE Stop: 08/16/22 12:59 Last Admin: 08/16/22 12:58 Dose: 88 ml Documented By: LANDON Loratadine (Loratadine 10 Mg Tab) 10 mg PO DAILY LILIAN Stop: 09/16/22 08:59 Last Admin: 08/17/22 08:03 Dose: 10 mg Documented By: SANDY Morphine Sulfate (Morphine Sulfate 4 Mg/Ml 1 Ml Carp\Vial) 3 mg IV Q4H PRN PRN Reason: Severe Pain Stop: 08/30/22 22:20 Last Admin: 08/17/22 00:45 Dose: 3 mg Documented By: Potassium Chloride (Potassium Chloride Crtab 20 Meq Tabcr) 40 meq PO NOW STA Stop: 08/16/22 17:49 Last Admin: 08/16/22 17:57 Dose: 40 meq Documented By: KIM Imaging Data Radiologist's Impression: Abdomen/Pelvis CT 08/16/22 12:[address] WITH IV CONTRAST CT DOSE: 320.53 mGy.cm HISTORY: Acute generalized abdominal pain with recent abdominal surgery recent abdominoplasty, L sided induration, drainag TECHNIQUE: Multiaxial CT images of the abdomen and pelvis were performed following the IV administration of 88 cc of Optiray, A dose lowering technique was utilized adhering to the principles of ALARA. COMPARISON STUDY: CT abdomen and pelvis 01/05/2020 FINDINGS: Partially imaged breast implants. Trace pleural effusions with subsegmental bibasilar atelectasis. No pneumatosis or pneumoperitoneum. Unremarkable spleen, pancreas, gallbladder and adrenal glands. The liver is within normal limits. Patency of the hepatic and portal veins. Mild bilateral pelviectasis is likely physiologic. Symmetric enhancement of the kidneys. Mild distention of the urinary bladder. Vaginal pessary. Uterus and adnexa appear unremarkable. Trace free pelvic fluid is likely physiologic. Aorta and IVC are unremarkable. No lymphadenopathy. No bowel obstruction or bowel wall thickening. Moderate colonic fecal retention. Normal appendix. Postoperative changes of the anterior abdominal wall with ill- defined subcutaneous fluid collection measuring up to 13.8 x 2.8 x 3.6 cm which demonstrates mild peripheral enhancement. Hounsfield unit of the collection measures up to 22. Small areas of associated increased attenuation. Moderate adjacent subcutaneous edema. Mildly prominent likely reactive left inguinal chain lymph nodes. No acute fracture. IMPRESSION: 1. Postoperative changes of the anterior abdominal wall with subcutaneous edema and ill-defined fluid collection measuring up to 13 cm suggestive of a probable seroma or hematoma. Correlate clinically to exclude infection. 2. No acute intra-abdominal or intrapelvic abnormality. 3. Trace pleural effusions. 4. Normal appendix. ACT 112: Negative or not required by law. The above report was generated using voice recognition software. It may contain grammatical, syntax or spelling errors. Electronically signed by: John Sullivan M.D. 08/16/2022 1:13 PM Chest X-Ray 08/16/22 12:04 XR chest 1V portable HISTORY: 51 years-old Female Sepsis acute sepsis COMPARISON: CT abdomen and pelvis 01/05/2020 TECHNIQUE: AP view of the chest FINDINGS: Cardiomediastinal and hilar silhouettes are within normal limits. No pneumothorax, pleural effusion, airspace consolidation or overt pulmonary edema. Degenerative changes of the shoulders and spine. Mild sigmoidal scoliosis of the thoracic spine. IMPRESSION: No acute process. ACT 112: Negative or not required by law. The above report was generated using voice recognition software. It may contain grammatical, syntax or spelling errors. Electronically signed by: John Sullivan M.D. 08/16/2022 12:48 PM Discharge Plan Visit Data Patient Disposition: Admitted As Inpatient Discharge Instructions Interventions: ED Discharge Assessment Last Done: 08/16/22 15:37
[2022-08-16] MEDS ORDERED: VANCOMYCIN HCL 1,500 MG in SODIUM CHLORIDE 0.9% 500 ML IV STA (12:04)
[2022-08-16] MEDS ORDERED: CEFEPIME 2,000 MG/20 ML VIAL IV STA (12:04)
[2022-08-16] MEDS ORDERED: VANCOMYCIN CONSULT ACTIVE PRN (12:04)
[2022-08-16] MEDS ORDERED: SODIUM CHLORIDE 0.9% 1000ML 1,000 ML IV SCH (12:15)
[2022-08-16 12:33] LABS: Basophils # (auto) 0.06 K/uL (0-0.2); Basophils % (auto) 0.5 %; Eosinophils # (auto) 0.38 K/uL (0-0.50); Eosinophils % (auto) 3.2 %; Hematocrit (blood only) 37.4 % (34.1-44.9); Hemoglobin 12.7 g/dl (12.0-16.0); Immature Granulocytes # (auto) 0.05 K/uL (0.00-0.02); Immature Granulocytes % (auto) 0.4 %; Lymphocytes # (auto) 2.21 K/uL (1.2-3.4); Lymphocytes % (auto) 18.5 %; Mean Corpuscular Hemoglobin 30.5 pg (25.0-34.0); Mean Corpuscular Volume 89.7 fL (80.0-100.0); Mean Platelet Volume 9.5 fL (9.4-12.3); Monocytes # (auto) 1.21 K/uL (0.24-0.82); Monocytes % (auto) 10.1 %; Neutrophils # (auto) 8.06 K/uL (1.4-6.5); Neutrophils % (auto) 67.3 %; Platelet Count 318 K/uL (130-400); RDW Coefficient of Variation 12.3 % (11.5-14.5); RDW Standard Deviation 40.5 fL (36.4-46.3); Red Blood Count 4.17 M/uL (3.93-5.22); White Blood Count 11.97 K/ul (4.8-10.8)
[2022-08-16 12:42] LABS: iSTAT Creatinine 0.6 mg/dl (0.6-1.3); iSTAT Hemoglobin 13.3 g/dl (12.0-16.0); iSTAT Ionized Calcium 1.21 mmol/l (1.12-1.32); iSTAT Potassium 3.2 mmol/L (3.3-5.0)
--- NOTE | 2022-08-16 12:50 | XRay Report ---
XR chest 1V portable HISTORY: 51 years-old Female Sepsis acute sepsis COMPARISON: CT abdomen and pelvis 01/05/2020 TECHNIQUE: AP view of the chest FINDINGS: Cardiomediastinal and hilar silhouettes are within normal limits. No pneumothorax, pleural effusion, airspace consolidation or overt pulmonary edema. Degenerative changes of the shoulders and spine. Mil d sigmoidal scoliosis of the thoracic spine. IMPRESSION: No acute process. ACT 112: Negative or not required by law. The above report was generated using voice recognition software. It may contain grammatical, syntax o r spelling errors. Electronically signed by: John Sullivan M.D. 08/16/2022 12:48 PM
[2022-08-16 12:53] LABS: Albumin Level 4.1 gm/dl (3.4-5.0); Bilirubin Direct 0.1 mg/dl (0-0.2); Bilirubin,Total 0.6 mg/dl (0.2-1.0); Calcium 9.6 mg/dl (8.5-10.1); Est GFR (African American) 119.1 ml/min; Est GFR (Non-African American) 102.8 ml/min; Magnesium 1.8 mg/dl (1.7-2.4); Potassium 3.4 mmol/L (3.5-5.1); Total Protein 7.3 gm/dl (6.0-8.3)
[2022-08-16 12:58] LABS: Troponin I High Sensitivity 2.7 pg/ml (0-14)
[2022-08-16] MEDS ORDERED: OPTIRAY 350 100ml IV ONE (12:58)
--- NOTE | 2022-08-16 13:15 | CT Scan Report ---
ABDOMEN AND PELVIS CT WITH IV CONTRAST CT DOSE: 320.53 mGy.cm HISTORY: Acute generalized abdominal pain with recent abdominal surgery recent abdominoplasty, L damian ed induration, drainag TECHNIQUE: Multiaxial CT images of the abdomen and pelvis were performed following the IV administrat ion of 88 cc of Optiray, A dose lowering technique was utilized adhering to the principles of ALARA. COMPARISON STUDY: CT abdomen and pelvis 01/05/2020 FINDINGS: Partially imaged breast implants. Trace pleural effusions with subsegmental bibasilar atele ctasis. No pneumatosis or pneumoperitoneum. Unremarkable spleen, pancreas, gallbladder and adrenal gl ands. The liver is within normal limits. Patency of the hepatic and portal veins. Mild bilateral pelv iectasis is likely physiologic. Symmetric enhancement of the kidneys. Mild distention of the urinary bladder. Vaginal pessary. Uterus and adnexa appear unremarkable. Trace free pelvic fluid is likely ph ysiologic. Aorta and IVC are unremarkable. No lymphadenopathy. No bowel obstruction or bowel wall thickening. Moderate colonic fecal retention. Normal appendix. Pos toperative changes of the anterior abdominal wall with ill-defined subcutaneous fluid collection juan manuel uring up to 13.8 x 2.8 x 3.6 cm which demonstrates mild peripheral enhancement. Hounsfield unit of th e collection measures up to 22. Small areas of associated increased attenuation. Moderate adjacent moody bcutaneous edema. Mildly prominent likely reactive left inguinal chain lymph nodes. No acute fracture . IMPRESSION: 1. Postoperative changes of the anterior abdominal wall with subcutaneous edema and ill-defined fluid collection measuring up to 13 cm suggestive of a probable seroma or hematoma. Correlate clinically t o exclude infection. 2. No acute intra-abdominal or intrapelvic abnormality. 3. Trace pleural effusions. 4. Normal appendix. ACT 112: Negative or not required by law. The above report was generated using voice recognition software. It may contain grammatical, syntax o r spelling errors. Electronically signed by: John Sullivan M.D. 08/16/2022 1:13 PM
--- NOTE | 2022-08-16 13:58 | History & Physical Report ---
Date of Service August 16, 2022 Assessment & Plan (1) Surgical site infection: (2) S/P abdominoplasty: Plan: This is a 51-year-old female with PMH of breast cancer status post bilateral mastectomy and chemotherapy as well as recent abdominoplasty in [facility] who presents with worsening redness to surgical incision over the past few days. Underwent abdominoplasty on 07/30 in OSH in [facility], in town for holiday Here with worsening redness and drainage of surgical site despite starting oral Keflex on 08/12 Vital signs stable, nontoxic appearance and does not meet sepsis criteria White blood cell count of 11.9 7K, hemoglobin stable at 12.7. Lactate and procalcitonin within normal limits CT abdomen pelvis with postoperative changes of the anterior abdominal wall with subcutaneous edema and ill-defined fluid collection measuring up to 13 cm sugges tive of a probable seroma or hematoma Evaluated in ED by general surgeon Dr. Alonzo who agreed with IV antibiotics. Possibility of opening up area for better drainage in the future Continue empiric cefepime and vancomycin Follow blood and wound cultures N.p.o. after midnight (3) History of breast cancer: Plan: Status post bilateral mastectomy. Continue anastrozole DVT Ppx: SQ lovenox Code status: FULL PCP: lives in [place], here visiting family Dispo: Obs med/surg Patient seen in collaboration with Dr. Lund. Please see addendum. History of Present Illness Chief Complaint: Abdominal pain, surgical site infection Primary Care Provider: NO PCP This is a 51-year-old female with PMH of breast cancer status post bilateral mastectomy and chemotherapy as well as recent abdominoplasty in [facility] who presents with worsening redness to surgical incision over the past few days. Is in town visiting over the hol. Underwent surgery on July 30 and had postop appointment 1 week later without any issues. Did have some drainage at 2 points in incision at that time, which surgeon felt to be expected and gave her some gauze. Then traveled to [place] for and felt feverish with chills with increased redness and drainage at surgical site on , calling her surgeon who prescribed her Keflex to take for possible surgical site infection. Has continued to feel poorly with redness spreading over towards left side with 2 sites of drainage. Patient states one of them has a white/yellow output and the other has a brown output. Denies any headache, lightheadedness, chest pain, shortness of breath, nausea, vomiting, dysuria, diarrhea or constipation. Allergies Allergy/AdvReac Type Severity Reaction Status Date / Time Sulfa (Sulfonamide Allergy Severe HIVES Unverified 01/05/20 18:10 Antibiotics) Home Medications Medication Instructions Recorded Confirmed Type albuterol sulfate 90 mcg/actuation 2 puff inhalation Q6H PRN Exercise 01/05/20 08/16/22 History aerosol inhaler Induced Bronchospasm anastrozole 1 mg tablet 1 mg PO DAILY 01/05/20 08/16/22 History cephalexin 500 mg capsule 500 mg PO BID 08/16/22 08/16/22 History estradiol 2 mg (7.5 mcg/24 hour) 1 vag ring vaginal UD 08/16/22 08/16/22 History vaginal ring (Estring) loratadine 10 mg tablet (Claritin) 10 mg PO DAILY 08/16/22 08/16/22 History omega-3 fatty acids 1,000 mg PO DAILY 08/16/22 08/16/22 History tretinoin 0.025 % topical cream 1 applic topical HS 08/16/22 08/16/22 History Past Med/Surg History Medical History History of breast cancer Surgical History H/O breast reconstruction H/O section H/O mastectomy Family History Other Breast cancer Social History Smoking Status: Former smoker Second Hand Exposure: No; Hx Alcohol Use: Yes Alcohol type: wine Alcohol Intake Frequency: 2-3 x/Week Hx Substance Use: No Preferred Language: Bahraini Communication Ability: Effective [employer] Lead Required: No Beliefs That Will Affect Care: None marital status: Current Living Situation: Family Current Living Situation Comment: With son Feels Safe at Home: Yes Safety Concerns: Feels Safe At This Time Assistive Devices: Glasses Review of Systems Review of Systems: At least ten systems reviewed and negative except as noted in the HPI. Physical Exam Physical Exam: General Appearance: WD/WN, vitals as above, NAD, sitting up in bed reading, pleasant, conversing easily Head: normocephalic, atraumatic Eyes: normal inspection, PERRL, conjunctivae normal, anicteric sclerae ENT: external ear and nose normal, oropharynx normal Neck: normal visual inspection, trachea midline, no thyromegaly Respiratory: normal respiratory effort, lungs clear to auscultation, no wheeze, rales, rhonchi. No accessory muscle use Cardiovascular: regular rate, rhythm, no murmur, normal peripheral pulses, no BLE edema. Vessels: no JVD Chest: normal inspection of chest Abdomen/GI: normal bowel sounds, soft, nontender, no hepatosplenomegaly. + healing horizontal lower abdominal incision with surrounding erythema, warm to touch. Central area of incision with pinkish brown drainage Extremities/Musculoskeletal: no cyanosis or clubbing, extremities motor strength 5/5 Neurologic: PERRL, EOMI, accommodation nl, no face palsy, no dysarthria, CN's II-XI intact bilaterally and moves all extremities Psychiatric: A+Ox3, euthymic affect Skin: no rashes, normal color, warm/dry Results & Data Results & Data ([facility]) Vital Signs (Past 12 Hours) Vital Signs Temp Pulse Pulse Resp BP BP Pulse Ox 08/16/22 13:04 81 20 123/71 97 08/16/22 12:34 08/16/22 11:08 36.8 C 107 H 18 126/87 99 O2 Del Method 08/16/22 13:04 Room Air 08/16/22 12:34 Room Air 08/16/22 11:08 Room Air Laboratory Results Short CBC 08/16/22 Range/Units 12:23 WBC 11.97 H (4.8-10.8) K/ul Hgb 12.7 (12.0-16.0) g/dl Hct 37.4 (34.1-44.9) % Plt Count 318 (130-400) K/uL BMP 08/16/22 12:23 Sodium 137 Potassium 3.4 L Chloride 102 Carbon Dioxide 26 BUN 13 Creatinine 0.65 Glucose 103 H Calcium 9.6 Liver Function 08/16/22 Range/Units 12:23 Total Bilirubin 0.6 (0.2-1.0) mg/dl Direct Bilirubin 0.1 (0-0.2) mg/dl AST 13 (13-39) U/L ALT 11 (7-52) U/L Alkaline Phosphatase 77 (34-104) U/L Albumin 4.1 (3.4-5.0) gm/dl Diagnostic Findings Abdomen/Pelvis CT 08/16/22 12:[address] WITH IV CONTRAST CT DOSE: 320.53 mGy.cm HISTORY: Acute generalized abdominal pain with recent abdominal surgery recent abdominoplasty, L sided induration, drainag TECHNIQUE: Multiaxial CT images of the abdomen and pelvis were performed following the IV administration of 88 cc of Optiray, A dose lowering technique was utilized adhering to the principles of ALARA. COMPARISON STUDY: CT abdomen and pelvis 01/05/2020 FINDINGS: Partially imaged breast implants. Trace pleural effusions with subsegmental bibasilar atelectasis. No pneumatosis or pneumoperitoneum. Unremarkable spleen, pancreas, gallbladder and adrenal glands. The liver is within normal limits. Patency of the hepatic and portal veins. Mild bilateral pelviectasis is likely physiologic. Symmetric enhancement of the kidneys. Mild distention of the urinary bladder. Vaginal pessary. Uterus and adnexa appear unremarkable. Trace free pelvic fluid is likely physiologic. Aorta and IVC are unremarkable. No lymphadenopathy. No bowel obstruction or bowel wall thickening. Moderate colonic fecal retention. Normal appendix. Postoperative changes of the anterior abdominal wall with ill- defined subcutaneous fluid collection measuring up to 13.8 x 2.8 x 3.6 cm which demonstrates mild peripheral enhancement. Hounsfield unit of the collection measures up to 22. Small areas of associated increased attenuation. Moderate adjacent subcutaneous edema. Mildly prominent likely reactive left inguinal chain lymph nodes. No acute fracture. IMPRESSION: 1. Postoperative changes of the anterior abdominal wall with subcutaneous edema and ill-defined fluid collection measuring up to 13 cm suggestive of a probable seroma or hematoma. Correlate clinically to exclude infection. 2. No acute intra-abdominal or intrapelvic abnormality. 3. Trace pleural effusions. 4. Normal appendix. ACT 112: Negative or not required by law. The above report was generated using voice recognition software. It may contain grammatical, syntax or spelling errors. Electronically signed by: John Sullivan M.D. 08/16/2022 1:13 PM Chest X-Ray 11/27/22 12:04 XR chest 1V portable HISTORY: 51 years-old Female Sepsis acute sepsis COMPARISON: CT abdomen and pelvis 01/05/2020 TECHNIQUE: AP view of the chest FINDINGS: Cardiomediastinal and hilar silhouettes are within normal limits. No pneumothorax, pleural effusion, airspace consolidation or overt pulmonary edema. Degenerative changes of the shoulders and spine. Mild sigmoidal scoliosis of the thoracic spine. IMPRESSION: No acute process. ACT 112: Negative or not required by law. The above report was generated using voice recognition software. It may contain grammatical, syntax or spelling errors. Electronically signed by: John Sullivan M.D. 08/16/2022 12:48 PM Supervising Physician Co-Signing Physician Notes I have seen and examined the patient and have discussed the case with the provider above. I agree with the assessment and plan as stated. 51 yo F from [facility], in town visiting family for the holiday, presenting with worsening post-operative redness, drainage, and discomfort along with fevers and generalized malaise. Not better on oral Keflex. She denies nausea and is eating. No other symptoms at this time. Physical reveals erythema extending about 1-2 inches either side of the incision more so on the left abdomen than right. There is some active drainage around the midline. This is bloody/serosanguineous without cassy pus. Abdomen is not distended and tender only around the incision site. Cardiopulmonary exam is unremarkable. She is not septic. Lab work reviewed and reveals WBC 12K and normal CBC otherwise, BMP within normal limits aside from a K 3.4. Procalcitonin is negative. CT abd/pelvis reveals post operative changes of the anterior abdominal wall with subcutaneous edema and ill-defined fluid collection. 13.8 x 2.8 x 3.6 cm fluid collection consistent with a probable seroma or hematoma. She was seen by general surgery and conservative measures recommended with IV antibiotics which have been ongoing since she arrived in the ER. She is not reporting intense pain at this time but will plan to offer supportive care as needed with pain meds/antiemetics, etc. Appreciate surgical guidance in the case. Cont home meds as ordered. DO Kevon
[2022-08-16] MEDS ORDERED: ALBUTEROL HFA 8 GM INHALER INH PRN (15:42)
[2022-08-16] MEDS ORDERED: ONDANSETRON INJ 2 MG/ML 2 ML VIAL IV PRN (16:08)
[2022-08-16] MEDS ORDERED: POLYETHYLENE (MIRALAX) 17 GM PACK PO PRN (16:08)
--- NOTE | 2022-08-16 16:57 | Surgery Consultation ---
Date of Consultation August 16, 2022 Assessment & Plan (1) Surgical site infection: likely seroma not abscess agree with IV abx if doesn't improve seroma may need to be drained Present on Admission?: Yes History of Present Illness Attending Physician: Glory Lund, DO History of Present Illness This is a 51-year-old female with PMH of breast cancer status post bilateral mastectomy and chemotherapy as well as recent abdominoplasty in [facility] who presents with worsening redness to surgical incision over the past few days. She presents with worsening redness and drainage of surgical site despite starting oral Keflex on 08/12. Her WBCs are 11.9 7K, hemoglobin stable at 12.7. CT abdomen pelvis with postoperative changes of the anterior abdominal wall with subcutaneous edema and ill-defined fluid collection measuring up to 13 cm suggestive of a probable seroma or hematoma. Agree with cefepime and vancomycin. Allergies Allergy/AdvReac Type Severity Reaction Status Date / Time Sulfa (Sulfonamide Allergy Severe HIVES Unverified 01/05/20 18:10 Antibiotics) Home Medications Medication Instructions Recorded Confirmed Type albuterol sulfate 90 mcg/actuation 2 puff inhalation Q6H PRN Exercise 01/05/20 08/16/22 History aerosol inhaler Induced Bronchospasm anastrozole 1 mg tablet 1 mg PO DAILY 01/05/20 08/16/22 History cephalexin 500 mg capsule 500 mg PO BID 08/16/22 08/16/22 History estradiol 2 mg (7.5 mcg/24 hour) 1 vag ring vaginal UD 08/16/22 08/16/22 History vaginal ring (Estring) loratadine 10 mg tablet (Claritin) 10 mg PO DAILY 08/16/22 08/16/22 History omega-3 fatty acids 1,000 mg PO DAILY 08/16/22 08/16/22 History tretinoin 0.025 % topical cream 1 applic topical HS 08/16/22 08/16/22 History Patient History Medical History (Updated 08/16/22 @ 16:42 by Hanh Saxena PA-C) History of breast cancer Surgical History (Updated 08/16/22 @ 16:41 by Hanh Saxena PA-C) H/O breast reconstruction H/O section H/O mastectomy Family History Other Breast cancer Social History (Updated 08/16/22 @ 16:34 by Hanh Saxena PA-C) Smoking Status: Former smoker Second Hand Exposure: No; Hx Alcohol Use: Yes Alcohol type: wine Alcohol Intake Frequency: 2-3 x/Week Hx Substance Use: No Preferred Language: Vincentian Communication Ability: Effective [employer] Supervisor Required: No Beliefs That Will Affect Care: None marital status: Current Living Situation: Family Current Living Situation Comment: With son Feels Safe at Home: Yes Safety Concerns: Feels Safe At This Time Assistive Devices: Glasses Review of Systems Constitutional: + fever; no chills Eyes: no problem reported Ear, Nose, Mouth, Throat: no problem reported Respiratory: no cough and no dyspnea Cardiovascular: no chest pain Gastrointestinal: no abdominal pain, no nausea and no vomiting Genitourinary: no dysuria Musculoskeletal: no problem reported Integumentary: + wounds Neurologic: no localized weakness and no generalized weakness Psychiatric: no behavioral changes Physical Exam Constitutional: WD/WN, vitals as above Eyes: PERRL, conjunctivae normal, anicteric sclerae Neck: trachea midline Respiratory: normal respiratory effort; no respiratory distress and no labored breathing Cardiovascular: RRR, no murmur, no edema Gastrointestinal (Abdomen): Inspection/Auscultation: abdomen normal to inspection, normal bowel sounds and + abdominal surgical incision (Seroma without fluctuance, small medial opening, cellulitis); abdomen not distended Percussion/Palpation: abdomen soft; abdomen nontender, no guarding and abdomen not rigid Musculoskeletal: Head/Neck/Chest: normocephalic and head atraumatic Skin: no rashes, warm and dry Results & Data ([facility]) Vital Signs (Past 12 Hours) Vital Signs Temp Pulse Pulse Resp BP BP Pulse Ox 08/16/22 16:18 37.1 C 16 131/81 98 08/16/22 15:37 75 20 98 08/16/22 13:04 81 20 123/71 97 08/16/22 12:34 08/16/22 11:08 36.8 C 107 H 18 126/87 99 O2 Del Method 08/16/22 16:18 Room Air 08/16/22 15:37 Room Air 08/16/22 13:04 Room Air 08/16/22 12:34 Room Air 08/16/22 11:08 Room Air
[2022-08-16] MEDS ORDERED: ENOXAPARIN INJ 40 MG/0.4 ML SYR SQ SCH (17:00)
--- NOTE | 2022-08-16 17:03 | Pharmacy Report ---
Pharmacy PK ABX Note - Date of Service August 16, 2022 - Assessment and Plan Assessment 51 year old F receiving IV Vancomycin + Cefepime for treatment of possible cellulitis. PMH of breast cancer s/p bilateral mastectomy and chemotherapy as well as recent abdominoplasty in [facility] who presents with worsening redness to surgical incision over the past few days. Blood cultures pending. Afebrile, Lactate and procal wnl. WBC 12K. Plan Vancomycin * Loading dose: 1500 mg IV x 1 * Maintenance dose: 1000 mg IV every 12 hours * Regimen is predicted to achieve target AUC/ANGELINE of 400-600 mg/L.hr * Random level ordered with [facility] 08/18 Pharmacy has transitioned to AUC monitoring for vancomycin. AUC/ANGELINE is the preferred PK/PD target and is associated with decreased risk of nephrotoxicity compared to traditional trough targets. Cefepime 2g IV Q12H for SSTI Pharmacy will continue to follow and will adjust dose/frequency as necessary. Thank you.
[2022-08-16 17:16] LABS: Appearance Urine Clear (Clear); Bacteria Urine Automated Negative (Negative); Bilirubin Urine Negative (Negative); Blood Urine Trace (Negative); Cast Urine Automated 0 /lpf (0-5); Color Urine Yellow; Glucose Urine UA Negative (Negative); Ketones Urine Trace (Negative); Leukocyte Esterase Urine Negative (Negative); Nitrite Urine Negative (Negative); Protein Urine Negative (Negative); RBC Urine Automated 0-4 /hpf (0-4); Specific Gravity Urine > 1.045 (1.000-1.030); Urobilinogen Urine Negative (Negative); pH Urine 5.5 (4.5-7.5)
[2022-08-16] MEDS: VANCOMYCIN HCL 1,000 MG in SODIUM CHLORIDE 0.9% 250 ML IV SCH (17:43)
[2022-08-16] MEDS ORDERED: POTASSIUM CHLORIDE CRTAB 20 MEQ TABCR PO STA (17:48)
--- NOTE | 2022-08-16 17:56 | Electrocardiogram Report ---
Test Reason : Blood Pressure : / mmHG Vent. Rate : 090 BPM Atrial Rate : 090 BPM P-R Int : 138 ms QRS Dur : 106 ms QT Int : 358 ms P-R-T Axes : 054 008 050 degrees QTc Int : 437 ms Poor data quality, interpretation may be adversely affected Normal sinus rhythm Incomplete right bundle branch block Borderline ECG No previous ECGs available Confirmed by Augustine Nicholas ([id number]) on 08/16/2022 5:55:43 PM Referred By: Confirmed By:Vic Nicholas
[2022-08-16] MEDS ORDERED: diphenhydrAMINE Capsule 25 MG CAP PO ONE (20:19)
[2022-08-16] MEDS: DOCUSATE SODIUM 100 MG CAP PO SCH (21:30)
[2022-08-16] MEDS: CEFEPIME 2,000 MG in SYRINGE 0 ML IV SCH (21:31)
[2022-08-16] MEDS: ACETAMINOPHEN 325 MG TAB PO PRN (22:11)
[2022-08-16] MEDS ORDERED: MoRPHine SULFATE 4 MG/ML 1 ML CARP\\VIAL IV PRN (22:21)
[2022-08-17] MEDS: VANCOMYCIN HCL 1,000 MG in SODIUM CHLORIDE 0.9% 250 ML IV SCH ×2 (05:24→15:52)
[2022-08-17] MEDS: ACETAMINOPHEN 325 MG TAB PO PRN ×2 (05:39→15:56)
[2022-08-17] MEDS: DOCUSATE SODIUM 100 MG CAP PO SCH (08:03)
[2022-08-17] MEDS: CEFEPIME 2,000 MG in SYRINGE 0 ML IV SCH (08:03)
[2022-08-17] MEDS ORDERED: LORATADINE 10 MG TAB PO SCH (09:00)
[2022-08-17] MEDS ORDERED: ANASTROZOLE 1 MG TAB PO SCH (09:00)
[2022-08-17 10:17] LABS: Hematocrit (blood only) 36.6 % (34.1-44.9); Hemoglobin 12.3 g/dl (12.0-16.0); Mean Corpuscular Hemoglobin 30.4 pg (25.0-34.0); Mean Corpuscular Hgb Conc 33.6 g/dL (32.0-36.0); Mean Corpuscular Volume 90.6 fL (80.0-100.0); Mean Platelet Volume 9.3 fL (9.4-12.3); Platelet Count 361 K/uL (130-400); RDW Coefficient of Variation 12.2 % (11.5-14.5); RDW Standard Deviation 40.3 fL (36.4-46.3); Red Blood Count 4.04 M/uL (3.93-5.22); White Blood Count 9.13 K/ul (4.8-10.8)
[2022-08-17 10:34] LABS: Calcium 9.6 mg/dl (8.5-10.1); Creatinine Clr Calc Pharmacy 119.7 ml/min; Est GFR (African American) 127.4 ml/min; Est GFR (Non-African American) 109.9 ml/min; Potassium 3.9 mmol/L (3.5-5.1)
--- NOTE | 2022-08-17 12:42 | Student Report ---
JOANN Med Student Progress Note Date of Service Date of service: August 17, 2022 Subjective Subjective: Pt resting in chair with this morning. Denies any fever, chills, night sweats during admission. States she "felt feverish" before coming to ED, but nothing since. Denies VERDUZCO, dizziness, lightheadedness, CP, SOB, N/V/D, problems with bowel, bladder habits. Reports that incision is tender to touch and has had increasing "pink/milky" drainage. States that she was able to take the antibiotics that her surgeon prescribed prior to coming to the ED. Has not had anything to eat or drink today for possible OR, debridement. Denies any pain other than tenderness at incision site. at bedside with patient. ROS ROS: See above for pertinent positives & negatives. A total of 10 systems reviewed and were otherwise negative. Physical Exam Physical Exam: Vital Signs Temp 36.7 C 08/17/22 08:22 Pulse 81 08/17/22 08:22 Resp 16 08/17/22 08:22 BP 123/85 08/17/22 08:22 Pulse Ox 98 08/17/22 08:22 O2 Del Method 08/17/22 08:22 Intake & Output 08/16/22 08/17/22 08/17/22 18:59 06:59 18:59 Intake Total 1530 / 1800 270 / 1800 270 / 270 Output Total 0 / 0 Balance 1530 / 1800 270 / 1800 270 / 270 Weight 72.3 kg 72.3 kg Intake: IV 1530 / 1800 270 / 1800 270 / 270 Sodium Chloride 0.9% 1000ML 1, 1000 / 1000 000 ml @ 999 mls/hr IV .Q1H1M [facility] Rx#:[id number] Vancomycin HCl 1,000 mg In 270 / 270 270 / 270 Sodium Chloride 0.9% 250 ml @ 200 mls/hr IV Q12H [facility] Rx#: [id number] Vancomycin HCl 1,500 mg In 530 / 530 Sodium Chloride 0.9% 500 ml @ 200 mls/hr IV NOW STA Rx#: [id number] Oral 0 / 0 Output: # Bowel Movements 0 / 0 Other: # Unmeasured Voids 1 3 Weight Measurement Method Built in [facility] Results Results: Short CBC 08/16/22 08/17/22 12:23 09:49 WBC 11.97 H 9.13 Hgb 12.7 12.3 Hct 37.4 36.6 Plt Count 318 361 BMP 08/16/22 08/17/22 12:23 09:49 Sodium 137 138 Potassium 3.4 L 3.9 Chloride 102 103 Carbon Dioxide 26 28 BUN 13 9 Creatinine 0.65 0.53 L Glucose 103 H 100 H Calcium 9.6 9.6 Liver Function 08/16/22 12:23 Total Bilirubin 0.6 Direct Bilirubin 0.1 AST 13 ALT 11 Alkaline Phosphatase 77 Albumin 4.1 Urine 08/16/22 Unknown Urine Color Yellow Urine Appearance Clear Urine pH 5.5 Ur Specific [place] > 1.045 H Urine Protein Negative Urine Glucose (UA) Negative Abdomen/Pelvis CT 08/16/22 12:[address] WITH IV CONTRAST CT DOSE: 320.53 mGy.cm HISTORY: Acute generalized abdominal pain with recent abdominal surgery recent abdominoplasty, L sided induration, drainag TECHNIQUE: Multiaxial CT images of the abdomen and pelvis were performed following the IV administration of 88 cc of Optiray, A dose lowering technique was utilized adhering to the principles of ALARA. COMPARISON STUDY: CT abdomen and pelvis 01/05/2020 FINDINGS: Partially imaged breast implants. Trace pleural effusions with subsegmental bibasilar atelectasis. No pneumatosis or pneumoperitoneum. Unremarkable spleen, pancreas, gallbladder and adrenal glands. The liver is within normal limits. Patency of the hepatic and portal veins. Mild bilateral pelviectasis is likely physiologic. Symmetric enhancement of the kidneys. Mild distention of the urinary bladder. Vaginal pessary. Uterus and adnexa appear unremarkable. Trace free pelvic fluid is likely physiologic. Aorta and IVC are unremarkable. No lymphadenopathy. No bowel obstruction or bowel wall thickening. Moderate colonic fecal retention. Normal appendix. Postoperative changes of the anterior abdominal wall with ill- defined subcutaneous fluid collection measuring up to 13.8 x 2.8 x 3.6 cm which demonstrates mild peripheral enhancement. Hounsfield unit of the collection measures up to 22. Small areas of associated increased attenuation. Moderate adjacent subcutaneous edema. Mildly prominent likely reactive left inguinal chain lymph nodes. No acute fracture. IMPRESSION: 1. Postoperative changes of the anterior abdominal wall with subcutaneous edema and ill-defined fluid collection measuring up to 13 cm suggestive of a probable seroma or hematoma. Correlate clinically to exclude infection. 2. No acute intra-abdominal or intrapelvic abnormality. 3. Trace pleural effusions. 4. Normal appendix. ACT 112: Negative or not required by law. The above report was generated using voice recognition software. It may contain grammatical, syntax or spelling errors. Electronically signed by: John Sullivan M.D. 08/16/2022 1:13 PM Chest X-Ray 08/16/22 12:04 XR chest 1V portable HISTORY: 51 years-old Female Sepsis acute sepsis COMPARISON: CT abdomen and pelvis 01/05/2020 TECHNIQUE: AP view of the chest FINDINGS: Cardiomediastinal and hilar silhouettes are within normal limits. No pneumothorax, pleural effusion, airspace consolidation or overt pulmonary edema. Degenerative changes of the shoulders and spine. Mild sigmoidal scoliosis of the thoracic spine. IMPRESSION: No acute process. ACT 112: Negative or not required by law. The above report was generated using voice recognition software. It may contain grammatical, syntax or spelling errors. Electronically signed by: John Sullivan M.D. 08/16/2022 12:48 PM A&P A&P: 1. Surgical site infection s/p abdominoplasty, POD #18: Pt visiting area for holiday, original surgery was performed at OSH in [place] where pt resides. 08/12, pt called surgeon re: increasing redness, drainage from wound. Took 4 days of Keflex from original surgeon's Rx prior to this admission. Mild leukocytosis 11.97 on admission, WBC today 9.13. General surgery c/s, recommended plastics evaluate so c/s placed to them and bedside washout was completed without incident. Abd wound culture grew rare gram positive cocci, awaiting sensitivities. Pt currently on vancomycin IV for empiric coverage. Pt requesting to go home with antibiotics and f/u with her surgeon. Will go home on doxycyline orally. 2. Hx of breast ca, s/p bilateral mastectomies and chemotherapy: Currently in remission. Continue anastrozole while inpatient. 3. Allergic rhinits: Continue loratadine. DVT proph: enoxaparin 40mg subQ injection Q 24hrs. Disposition: Awaiting general surgery input. Pt would like to travel home and continue care with original surgical team if surgery will be delayed and it is safe for patient to do so.
--- NOTE | 2022-08-17 13:04 | Surgery Consultation ---
Date of Consultation August 17, 2022 Assessment & Plan (1) S/P abdominoplasty: Wound infection s/p liposuction with miniabdominoplasty. Wound packed to facilitate drainage. She does not require any surgical intervention. She is stable for discharged with Keflex 500 mg tid, and can follow-up with her surgeon in [place]. Case discussed with Dr. Cast. (2) Surgical site infection: History of Present Illness Attending Physician: Glory Lund, History of Present Illness Jo Ann is being seen today in consultation for abscess of her abdomen s/p liposuction with mini abdominoplasty on 07/30. She did not have any drains placed post-operatively. She notes wound began to open and drain blood early last week, had increasing drainage that became thicker in color. She did call her surgeon who initiated Keflex, 500 mg BID on Wednesday. Wednesday, she noticed increasing redness of the lower abdomen and copious thick drainage from her incision. She was admitted and started on IV cefepime and vancomycin. Culture obtained reveal Staph A. She has remained in contact with her surgeon in [place], and will follow-up in their office once home. Allergies Allergy/AdvReac Type Severity Reaction Status Date / Time Sulfa (Sulfonamide Allergy Severe HIVES Unverified 01/05/20 18:10 Antibiotics) Home Medications Medication Instructions Recorded Confirmed Type albuterol sulfate 90 mcg/actuation 2 puff inhalation Q6H PRN Exercise 01/05/20 08/16/22 History aerosol inhaler Induced Bronchospasm anastrozole 1 mg tablet 1 mg PO DAILY 01/05/20 08/16/22 History cephalexin 500 mg capsule 500 mg PO BID 08/16/22 08/16/22 History estradiol 2 mg (7.5 mcg/24 hour) 1 vag ring vaginal UD 08/16/22 08/16/22 History vaginal ring (Estring) loratadine 10 mg tablet (Claritin) 10 mg PO DAILY 08/16/22 08/16/22 History omega-3 fatty acids 1,000 mg PO DAILY 08/16/22 08/16/22 History tretinoin 0.025 % topical cream 1 applic topical HS 08/16/22 08/16/22 History Patient History Medical History History of breast cancer Surgical History H/O breast reconstruction H/O section H/O mastectomy Family History Other Breast cancer Social History Smoking Status: Former smoker Second Hand Exposure: No; Hx Alcohol Use: Yes Alcohol type: wine Alcohol Intake Frequency: 2-3 x/Week Hx Substance Use: No Preferred Language: Citizen Of [place] Communication Ability: Effective Services Delivery Driver Required: No Beliefs That Will Affect Care: None marital status: Current Living Situation: Family Current Living Situation Comment: With son Feels Safe at Home: Yes Safety Concerns: Feels Safe At This Time Assistive Devices: None Review of Systems Review of Systems: All systems reviewed & are unremarkable except as noted in HPI & below Physical Exam Physical Exam: left lower abdomen with erythema of he soft tissue, indurated. opening mid incision that can probe the entire length of the incision with thick, purulent drainage. irrigated with sterile saline and packed with 1" gauze Constitutional: WD/WN, vitals as above Results & Data ([facility]) Vital Signs (Past 12 Hours) Vital Signs Temp Pulse Pulse Resp BP Pulse Ox O2 Del Method 08/17/22 08:22 36.7 C 81 16 123/85 98 Room Air 08/17/22 07:56 37.1 C 89 18 120/72 97 Room Air PG Care Time/CCT Total # of Minutes Spent Total Time Spent with Patient: Total time spent is greater than 50% in coordination of care (as documented) at patient's floor/unit and/or counseling patient: Coding Level of Care Code 49464 Inpt Consult Level 3 Diagnoses S/P abdominoplasty Z98.890 Surgical site infection T81.49XA
--- NOTE | 2022-08-17 15:07 | Hospitalist Progress Note ---
Date of Service August 17, 2022 Assessment & Plan (1) Surgical site infection: (2) S/P abdominoplasty: Plan: This is a 51-year-old female with PMH of breast cancer status post bilateral mastectomy and chemotherapy as well as recent abdominoplasty in [facility] who presents with worsening redness to surgical incision over the past few days. Underwent abdominoplasty on 07/30 in OSH in [facility], in town for holiday Here with worsening redness and drainage of surgical site despite starting oral Keflex on 08/12 Vital signs stable, Lactate and procalcitonin WNL, nontoxic appearance and does not meet sepsis criteria CT abdomen pelvis with postoperative changes of the anterior abdominal wall with subcutaneous edema and ill-defined fluid collection measuring up to 13 cm suggestive of a probable seroma or hematoma Started on IV cefepime and Vanco (day 2) Remains afebrile, no leukocytosis. Initially evaluated by general surgery, plastic surgery consulted today given nature of patient's surgery. Bedside washout and packing performed. Wound culture -preliminary result with Staphylococcus species. Will DC cefepime today, continue Vanco. Blood cultures NGTD Will need close follow-up with surgeon in [place]. Plan on d/c tomorrow once wound culture and sensitivities finalize. (3) History of breast cancer: Plan: Status post bilateral mastectomy. Continue anastrozole DVT prophylaxis SQ Lovenox Admission and Anticipated Discharge Date Admission Date: August 16, 2022 Supervising Physician Co-Signing Physician Notes I have seen and examined the patient and have discussed the case with the provid er above. I agree with the assessment and plan as stated with the following exceptions. Overnight she had alot of purulent oozing from the site. Plastics came in today and did a bedside washout with packing in place. The patient is requesting to leave today to get back to the [facility] tomorrow morning. She has agree to one additional dose of vancomycin and then will leave on oral antibiotics (will choose doxycycline over Keflex with staph growing with no sensitivities). We will plan to contact her for any resistance issues once culture is finalized tomorrow. She is not systemically ill at this time and has no fever. She is tolerating PO and has no major discomfort or pain. Labs reviewed and she will be sent home in stable condition after evening vancomycin dose. Kevon, DO Subjective Follow-up for surgical site infection, s/p abdominoplasty. Patient seen and examined. Reports increased drainage from wound. Remains afebrile. No chest pain or shortness of breath. Denies abdominal pain and nausea. Review of Systems Review of Systems: ROS per HPI, all other systems reviewed and negative Physical Exam Constitutional: WD/WN, vitals as above no acute distress Respiratory: normal respiratory effort, lungs clear to auscultation Cardiovascular: Rate/Rhythm: regular rate and regular rhythm Vessels: normal peripheral pulses Extremities: no edema Gastrointestinal (Abdomen): Percussion/Palpation: abdomen soft; abdomen nontender Skin: surgical incision across the lower abdomen, opening mid incision with thick, purulent, bloody drainage, erythema extending to the left with indurated tissue Neurologic: no focal motor deficits Psychiatric: A+Ox3, euthymic affect Results & Data Results & Data ([facility]) Vital Signs (Past 12 Hours) Vital Signs Temp Pulse Pulse Resp BP Pulse Ox O2 Del Method 08/17/22 13:32 37.2 C 94 H 18 130/84 100 Room Air 08/17/22 08:22 36.7 C 81 16 123/85 98 Room Air 08/17/22 07:56 37.1 C 89 18 120/72 97 Room Air Laboratory Results Short CBC 08/17/22 Range/Units 09:49 WBC 9.13 (4.8-10.8) K/ul Hgb 12.3 (12.0-16.0) g/dl Hct 36.6 (34.1-44.9) % Plt Count 361 (130-400) K/uL BMP 08/17/22 09:49 Sodium 138 Potassium 3.9 Chloride 103 Carbon Dioxide 28 BUN 9 Creatinine 0.53 L Glucose 100 H Calcium 9.6 Urine 08/16/22 Range/Units Unknown Urine Color Yellow Urine Appearance Clear (Clear) Urine pH 5.5 (4.5-7.5) Ur Specific [place] > 1.045 H (1.000-1.030) Urine Protein Negative (Negative) Urine Glucose (UA) Negative (Negative)
--- NOTE | 2022-08-17 17:59 | Discharge Summary ---
Date of Service August 17, 2022 Admission HPI Per Admitting Provider This is a 51-year-old female with PMH of breast cancer status post bilateral mastectomy and chemotherapy as well as recent abdominoplasty in [facility] who presents with worsening redness to surgical incision over the past few days. Is in town visiting over the . Underwent surgery on July 30 and had postop appointment 1 week later without any issues. Did have some drainage at 2 points in incision at that time, which surgeon felt to be expected and gave her some gauze. Then traveled to [place] for and felt feverish with chills with increased redness and drainage at surgical site on , calling her surgeon who prescribed her Keflex to take for possible surgical site infection. Has continued to feel poorly with redness spreading over towards left side with 2 sites of drainage. Patient states one of them has a white/yellow output and the other has a brown output. Denies any headache, lightheadedness, chest pain, shortness of breath, nausea, vomiting, dysuria, diarrhea or constipation. Admission Exam Per Admitting Provider General Appearance:WD/WN, vitals as above, NAD, sitting up in bed reading, pleasant, conversing easily Head: normocephalic, atraumatic Eyes:normal inspection, PERRL, conjunctivae normal, anicteric sclerae ENT: external ear and nose normal, oropharynx normal Neck: normal visual inspection, trachea midline, no thyromegaly Respiratory:normal respiratory effort, lungs clear to auscultation, no wheeze, rales, rhonchi. No accessory muscle use Cardiovascular: regular rate, rhythm, no murmur, normal peripheral pulses, no BLE edema. Vessels: no JVD Chest: normal inspection of chest Abdomen/GI: normal bowel sounds, soft, nontender, no hepatosplenomegaly. + healing horizontal lower abdominal incision with surrounding erythema, warm to touch. Central area of incision with pinkish brown drainage Extremities/Musculoskeletal: no cyanosis or clubbing, extremities motor strength 5/5 Neurologic: PERRL, EOMI, accommodation nl, no face palsy, no dysarthria, CN's II-XI intact bilaterally and moves all extremities Psychiatric:A+Ox3, euthymic affect Skin: no rashes, normal color, warm/dry Principal Diagnosis Surgical site infection Discharge Exam Constitutional: WD/WN, vitals as above no acute distress Respiratory: normal respiratory effort, lungs clear to auscultation Cardiovascular: Rate/Rhythm: regular rate and regular rhythm Vessels: normal peripheral pulses Extremities: no edema Gastrointestinal (Abdomen): Percussion/Palpation: abdomen soft; abdomen non tender Skin: surgical incision across the lower abdomen, opening mid incision with thick, purulent, bloody drainage, erythema extending to the left with indurated tissue Neurologic: no focal motor deficits Psychiatric: A+Ox3, euthymic affect Discharge Data Allergies Allergy/AdvReac Type Severity Reaction Status Date / Time Sulfa (Sulfonamide Allergy Severe HIVES Unverified 01/05/20 18:10 Antibiotics) Consultations 08/16/22 14:20 Consult General Surgery Routine 08/17/22 11:16 Consult Plastic Surgery Routine Ordered Studies Laboratory Results WBC 9.13 K/ul (4.8-10.8) 08/17/22 09:49 RBC 4.04 M/uL (3.93-5.22) 08/17/22 09:49 Hgb 12.3 g/dl (12.0-16.0) 08/17/22 09:49 POC Hgb 13.3 g/dl (12.0-16.0) 08/16/22 12:29 Hct 36.6 % (34.1-44.9) 08/17/22 09:49 POC Hct 39 % (37-47) 08/16/22 12:29 MCV 90.6 fL (80.0-100.0) 08/17/22 09:49 MCH 30.4 pg (25.0-34.0) 08/17/22 09:49 MCHC 33.6 g/dL (32.0-36.0) 08/17/22 09:49 RDW Std Deviation 40.3 fL (36.4-46.3) 08/17/22 09:49 RDW Coeff of John 12.2 % (11.5-14.5) 08/17/22 09:49 Plt Count 361 K/uL (130-400) 08/17/22 09:49 MPV 9.3 fL (9.4-12.3) L 08/17/22 09:49 Immature Gran % (Auto) 0.4 % 08/16/22 12:23 Neut % (Auto) 67.3 % 08/16/22 12:23 Lymph % (Auto) 18.5 % 08/16/22 12:23 Door % (Auto) 10.1 % 08/16/22 12:23 Eos % (Auto) 3.2 % 08/16/22 12:23 Baso % (Auto) 0.5 % 08/16/22 12:23 Neut # (Auto) 8.06 K/uL (1.4-6.5) H 08/16/22 12:23 Lymph # (Auto) 2.21 K/uL (1.2-3.4) 08/16/22 12:23 Door # (Auto) 1.21 K/uL (0.24-0.82) H 08/16/22 12:23 Eos # (Auto) 0.38 K/uL (0-0.50) 08/16/22 12:23 Baso # (Auto) 0.06 K/uL (0-0.2) 08/16/22 12: Immature Gran # (Auto) 0.05 K/uL (0.00-0.02) H 08/16/22 12:23 POC Sodium 137 mmol/L (135-144) 08/16/22 12:29 Sodium 138 mmol/L (136-145) 08/17/22 09:49 POC Potassium 3.2 mmol/L (3.3-5.0) L 08/16/22 12:29 Potassium 3.9 mmol/L (3.5-5.1) 08/17/22 09:49 POC Chloride 99 mmol/L (101-112) L 08/16/22 12:29 Chloride 103 mmol/L (98-107) 08/17/22 09:49 Carbon Dioxide 28 mmol/L (21-32) 08/17/22 09:49 POC Total CO2 24 mmol/L (24-31) 08/16/22 12:29 Anion Gap 7 (3-11) 08/17/22 09:49 POC Anion Gap 18.0 mmol/L (16-25) 08/16/22 12:29 POC BUN 14 mg/dl (7-18) 08/16/22 12:29 BUN 9 mg/dl (6-23) 08/17/22 09:49 Creatinine 0.53 mg/dl (0.6-1.2) L 08/17/22 09:49 POC Creatinine 0.6 mg/dl (0.6-1.3) 08/16/22 12:29 Est Cr Clr Drug Dosing 119.7 ml/min 08/17/22 09:49 Est GFR ( Amer) 127.4 ml/min 08/17/22 09:49 Est GFR (Non-Af Amer) 109.9 ml/min 08/17/22 09:49 BUN/Creatinine Ratio 17.0 (10-20) 08/17/22 09:49 Glucose 100 mg/dl (70-99(Fasting)) H 08/17/22 09:49 POC Glucose (other) 105 mg/dl (70-99) H 08/16/22 12:29 Lactate 0.7 mmol/L (0.4-2.0) 08/16/22 12:23 Calcium 9.6 mg/dl (8.5-10.1) 08/17/22 09:49 POC Ioniz Calcium Ricarda 1.21 mmol/l (1.12-1.32) 08/16/22 12:29 Magnesium 1.8 mg/dl (1.7-2.4) 08/16/22 12:23 Total Bilirubin 0.6 mg/dl (0.2-1.0) 08/16/22 12:23 Direct Bilirubin 0.1 mg/dl (0-0.2) 08/16/22 12:23 AST 13 U/L (13-39) 08/16/22 12:23 ALT 11 U/L (7-52) 08/16/22 12:23 Alkaline Phosphatase 77 U/L (34-104) 08/16/22 12:23 Troponin I High Sens 2.7 pg/ml (0-14) 08/16/22 12:23 Total Protein 7.3 gm/dl (6.0-8.3) 08/16/22 12:23 Albumin 4.1 gm/dl (3.4-5.0) 08/16/22 12:23 Procalcitonin 0.05 ng/ml (0-0.5) 08/16/22 12:23 Urine Color Yellow 08/16/22 Unknown Urine Appearance Clear (Clear) 08/16/22 Unknown Urine pH 5.5 (4.5-7.5) 08/16/22 Unknown Ur Specific [place] > 1.045 (1.000-1.030) H 08/16/22 Unknown Urine Protein Negative (Negative) 08/16/22 Unknown Urine Glucose (UA) Negative (Negative) 08/16/22 Unknown Urine Ketones Trace (Negative) H 08/16/22 Unknown Urine Blood Trace (Negative) H 08/16/22 Unknown Urine Nitrite Negative (Negative) 08/16/22 Unknown Urine Bilirubin Negative (Negative) 08/16/22 Unknown Urine Urobilinogen Negative (Negative) 08/16/22 Unknown Ur Leukocyte Esterase Negative (Negative) 08/16/22 Unknown Urine WBC (Auto) 1-5 /hpf (0-5) 08/16/22 Unknown Urine RBC (Auto) 0-4 /hpf (0-4) 08/16/22 Unknown U Hyaline Cast (Auto) 0 /lpf (0-5) 08/16/22 Unknown U Epithel Cells (Auto) 5-10 /lpf (0-5) H 08/16/22 Unknown Urine Bacteria (Auto) Negative (Negative) 08/16/22 Unknown SARS-CoV-2, RNA, NAAT NEGATIVE (NEGATIVE) 08/16/22 14:20 Impressions Abdomen/Pelvis CT 08/16/22 12:[address] WITH IV CONTRAST CT DOSE: 320.53 mGy.cm HISTORY: Acute generalized abdominal pain with recent abdominal surgery recent abdominoplasty, L sided induration, drainag TECHNIQUE: Multiaxial CT images of the abdomen and pelvis were performed following the IV administration of 88 cc of Optiray, A dose lowering technique was utilized adhering to the principles of ALARA. COMPARISON STUDY: CT abdomen and pelvis 01/05/2020 FINDINGS: Partially imaged breast implants. Trace pleural effusions with subsegmental bibasilar atelectasis. No pneumatosis or pneumoperitoneum. Unremarkable spleen, pancreas, gallbladder and adrenal glands. The liver is within normal limits. Patency of the hepatic and portal veins. Mild bilateral pelviectasis is likely physiologic. Symmetric enhancement of the kidneys. Mild distention of the urinary bladder. Vaginal pessary. Uterus and adnexa appear unremarkable. Trace free pelvic fluid is likely physiologic. Aorta and IVC are unremarkable. No lymphadenopathy. No bowel obstruction or bowel wall thickening. Moderate colonic fecal retention. Normal appendix. Postoperative changes of the anterior abdominal wall with ill- defined subcutaneous fluid collection measuring up to 13.8 x 2.8 x 3.6 cm which demonstrates mild peripheral enhancement. Hounsfield unit of the collection measures up to 22. Small areas of associated increased attenuation. Moderate adjacent subcutaneous edema. Mildly prominent likely reactive left inguinal chain lymph nodes. No acute fracture. IMPRESSION: 1. Postoperative changes of the anterior abdominal wall with subcutaneous edema and ill-defined fluid collection measuring up to 13 cm suggestive of a probable seroma or hematoma. Correlate clinically to exclude infection. 2. No acute intra-abdominal or intrapelvic abnormality. 3. Trace pleural effusions. 4. Normal appendix. ACT 112: Negative or not required by law. The above report was generated using voice recognition software. It may contain grammatical, syntax or spelling errors. Electronically signed by: John Sullivan M.D. 08/16/2022 1:13 PM Chest X-Ray 08/16/22 12:04 XR chest 1V portable HISTORY: 51 years-old Female Sepsis acute sepsis COMPARISON: CT abdomen and pelvis 01/05/2020 TECHNIQUE: AP view of the chest FINDINGS: Cardiomediastinal and hilar silhouettes are within normal limits. No pne umothorax, pleural effusion, airspace consolidation or overt pulmonary edema. Degenerative changes of the shoulders and spine. Mild sigmoidal scoliosis of the thoracic spine. IMPRESSION: No acute process. ACT 112: Negative or not required by law. The above report was generated using voice recognition software. It may contain grammatical, syntax or spelling errors. Electronically signed by: John Sullivan M.D. 08/16/2022 12:48 PM Hospital Course (1) Surgical site infection: (2) S/P abdominoplasty: This is a 51-year-old female with PMH of breast cancer status post bilateral mastectomy and chemotherapy as well as recent abdominoplasty in [facility] who presents with worsening redness to surgical incision over the past few days. Underwent abdominoplasty on 07/30 in OSH in [facility], in town for holiday Here with worsening redness and drainage of surgical site despite starting oral Keflex on 08/12 Vital signs stable, Lactate and procalcitonin WNL, nontoxic appearance and does not meet sepsis criteria CT abdomen pelvis with postoperative changes of the anterior abdominal wall with subcutaneous edema and ill-defined fluid collection measuring up to 13 cm suggestive of a probable seroma or hematoma Patient started on IV cefepime and IV Vanco Initially evaluated by general surgery, plastic surgery consulted given nature of patient's surgery. Bedside washout and packing performed. Wound culture -preliminary result with Staphylococcus species Blood cultures NGTD Patient eager to be discharged home this evening. Remains nontoxic appearing. Will discharge after this evening's dose of IV vancomycin and then start on on PO Doxy for a 10-day course. Will follow-up final wound culture results and no tify patient of potential antibiotic adjustment. Patient educated regarding importance of prompt follow-up with her surgeon in [place]. (3) History of breast cancer: Status post bilateral mastectomy. Continue anastrozole Total Time Total Time Spent Total Time Spent (In Minutes): 40 Discharge Plan Discharge Items Patient Disposition: Home - Self-Care Reason For Visit: SURGICAL SITE INFECTION Discharge Diagnosis: Surgical Site Infection Activity: Resume your previous activity Non-emergency contact: Primary Care Provider and Surgeon Call non-emergency contact if: you have any medication questions, your symptoms worsen, you have a fever, your wound has increased redness, your wound has increased drainage and your wound pain has increased Follow-up/Referrals: PCP,NO [Primary Care Provider] - Diet: Regular Addtl Attending Provider Instructions: You came to the hospital for evaluation of increased redness and drainage from surgical incision from recent abdominoplasty. You were placed on IV antibiotics and will be discharged on doxycycline 100mg twice daily. Note that final wound culture is pending and you will be notified of results and possible need for antibiotic change. Plastic surgery performed a bedside washout and packing of your wound. Refer to their instructions below for dressing instructions. Follow-up with your surgeon in [place] [facility] -records will be faxed to his office. It was a pleasure taking care of you. If you need to reach a member the [facility] hospitalist team at [facility], please call [phone]. TAWNY Alvarez Wound Care Instructions: Keep abdominal packing in place. Change outer gauze dressing as needed for saturation. Follow-up with your surgeon in 1-2 days. Pending Studies at Discharge: Yes Studies:: finalized wound culture Stand-Alone Forms: My [facility] Medications and DC Order Prescriptions: New doxycycline hyclate 100 mg capsule 100 mg PO BID 10 Days Qty: 20 0RF Continued anastrozole 1 mg tablet 1 mg PO DAILY albuterol sulfate 90 mcg/actuation HFA aerosol inhaler 2 puff INHALATION Q6H PRN (Reason: Exercise Induced Bronchospasm) Estring 2 mg (7.5 mcg /24 hour) ring 1 vag ring VAGINAL UD tretinoin 0.025 % cream 1 applic TOPICAL HS loratadine [Claritin] 10 mg Tablet 10 mg PO DAILY omega-3 fatty acids Capsule 1,000 mg PO DAILY Discontinued cephalexin 500 mg capsule 500 mg PO BID Rx Instructions: ordered 08/14/22 take for 7 days Discharge Orders: Discharge Order (Routine); Ordered 08/17/22 Ordered By: Megan Hansen Admission Data Admit Date/Time: 08/16/22 14:10 Attending Provider: Glory Lund Admit Provider: Glory Lund Primary Care Provider: PCP,NO Other Providers: Glory Lund ; Ashlyn Cast ; Joon Alonzo Other Interventions: Discharge Summary Assessment (RN) Last Done: 08/17/22 17:10 Supervising Physician Co-Signing Physician Notes I have seen and examined the patient and have discussed the case with the provider above. I agree with the assessment and plan as stated.
[2022-08-18] MEDS ORDERED: VANCOMYCIN LEVEL ONE (04:30)
== END 2022-08-17 17:57 | disposition home or self-care (01) ==
LOC: 3N 10:22 → ED 10:22 → 3N 15:37